=== PATIENT | female | born 1970 | race Caucasian/White ===

== ENCOUNTER → 2020-02-24 08:29 | Outpatient (CLI) | payer SELFPAY ==
[2020-02-24 09:37] LABS: ALB/GLOB Ratio 0.9 RATIO (0.9-2.4); AST(SGOT) 15 U/L (15-37); Alanine Aminotransfer ALT/SGPT 38 U/L (13-56); Albumin, Serum 3.8 g/dL (3.2-5.0); Alkaline Phosphatase 89 U/L (45-117); Anion Gap 5 (5-15); BUN 16 mg/dL (7-18); BUN/Creat Ratio 18.8 RATIO (10-20); Calcium,Total 9.4 mg/dL (8.5-10.1); Chloride 103 mmol/L (98-107); Cholesterol 179 mg/dL (200); Creatinine, Serum 0.85 mg/dL (0.55-1.02); EST Glomerular Filtration Rate 76 mL/min (>60); Est Glom Filt Rate - Afr Amer 92 mL/min (>60); Globulin 4.3 g/dL (2.2-4.2); Glucose 174 mg/dL (74-106); High Density Lipoprotein 47 mg/dL; Potassium 4.6 mmol/L (3.5-5.1); Protein, Total 8.1 g/dL (6.4-8.2); Sodium Level 138 mmol/L (136-145); Triglycerides 155 mg/dL; Very Low Density Lipoprotein 31 mg/dL (5-40)
[2020-02-24 09:39] LABS: Hemoglobin A1c 6.5 % (3.8-5.6)
[2020-02-26 08:30] LABS: Vitamin D,25 Hydroxy 81.9 ng/mL
== END ==
PROVIDERS: PCP Family Medicine; Referring Provider Family Medicine; Visit Provider Family Medicine
DX: E11.42 Type 2 diabetes mellitus with diabetic polyneuropathy (principal); I10 Essential (primary) hypertension; E55.9 Vitamin D deficiency, unspecified
CPT/HCPCS: 36415; 80053; 80061; 82306; 83036

== ENCOUNTER → 2020-08-21 10:34 | Outpatient (CLI) | payer SELFPAY ==
--- NOTE | 2020-08-21 10:41 | ART_ITS ---
Reason For Study: NEUROPATHY Procedure A bilateral lower extremity continuous wave Doppler with analog waveform analysis,segmental pressures,and ankle brachial indexes with exercise. Left Segmental Pressures Left brachial= 153mmHg. Left posterior tibial artery = 154mmHg. Left dorsalis pedis artery = 157mmHg. Left digit = 144 mmHg. The left posterior tibial artery waveforms are triphasic. The left dorsalis pedis waveforms are triphasic. Right Segmental Pressures Right brachial= 154mmHg. Right posterior tibial artery = 167mmHg. Right dorsalis pedis artery = 162mmHg. Right digit = 150 mmHg. The right posterior tibial artery waveforms are triphasic. The right dorsalis pedis waveforms are triphasic. Indices The right ankle brachial index by the posterior tibial artery is 1.08. The right ankle brachial index by the dorsalis pedis is 1.05. The right digital-brachial index is 0.97. The right ankle brachial index by the posterior tibial artery post exercise is 1.15. The left ankle brachial index by the posterior tibial artery is 1.00. The left ankle brachial index by the dorsalis pedis is 1.02. The left digital-brachial index is 0.94. The left post exercise ankle brachial index is 0.99. VL/Lower Ext Art Exam w/ Exercise Interpretation Summary Triphasic Doppler waveforms are noted at ankle level bilaterally. Pulse-volume recording waveform amplitudes are diminished at digital level bilaterally, but satisfactory at all other levels bilaterally. Resting ankle-brachial indices are normal bilaterally. Digital-bra chial indices are normal bilaterally. Following a period of exercise, ankle pressures augmented b ilaterally, a normal physiological response. There is no evidence of significant arterial occlusive disease in the lower ext remities bilaterally. (Patient walked on treadmill at 1.0 mph at a 5% incline for 5 minutes. Patient was unable to walk at a faster pace.) Ordering Physician: [facility] Allie Peters [facility] Performed By: Francia Rosado RVT, RDCS
== END ==
DX: G90.09 Other idiopathic peripheral autonomic neuropathy (principal)
CPT/HCPCS: 93924

== ENCOUNTER → 2020-10-16 08:39 | Outpatient (CLI) | payer SELFPAY ==
--- NOTE | 2020-10-16 15:44 | NEURO_ITS ---
NCS and/or EMG Patient Report Ordering Doctor: Cynthia Benedict DATE OF SERVICE: 10/16/20 Terri presents for electrodiagnostic testing of the lower limbs. She reports burning and hypersensitivity in both feet Electrodiagnostic findings: Peroneal motor nerve demonstrates normal distal latency, amplitude and conduction velocity bilaterally. Tibial motor response within normal limits. Prolonged sural latency is noted bilaterally. Normal superficial peroneal and medial plantar responses prolonged H reflex bilater ally. Prolonged peroneal F wave bilaterally. On needle EMG, all muscles tested in the lower limbs showed no evidence of denervation with normal motor unit action potentials. Electrodiagnostic impression: This is an abnormal study in the lower limbs. 1. 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
== END ==
PROVIDERS: Referring Provider Nurse Practitioner Adult Health; Visit Provider Nurse Practitioner Adult Health
DX: G90.09 Other idiopathic peripheral autonomic neuropathy (principal)
CPT/HCPCS: 95886; 95912

== ENCOUNTER 2021-08-07 16:36 | Emergency (ER) | payer BC, SELFPAY ==
[2021-08-07 16:36] VITALS: BP 163/96; PULSE 132; RESP 22; TEMP 35.5; O2SAT 92; BMI 44.6
[2021-08-07 16:53] VITALS: BP 116/78; PULSE 129; RESP 22; O2SAT 91
--- NOTE | 2021-08-07 17:24 | ED.VIS.FALL ---
HPI HPI - Fall History of Present Illness Chief Complaint: Fall Informant: patient Occured/Mechanism Occurred: Yesterday Mechanism/Context: Yes same level fall Usually ambulates: Without assistance Pain/Injury Pain Location: head and lower extremity (Left ankle and foot) Quality of Pain: Stabbing Worsened by: Movement Relieved by: Rest Associated Symptoms Associated Symptoms: Negative for Parasthesias, Weakness, Loss of function, Loss of consciousness and Amnesia Narrative Narrative: Patient presents after a fall that occurred yesterday. Patient states she was getting out of a van when she fell. Patient twisted her ankle. Patient states she fell backwards and hit the right side of her head. Patient denies any loss of consciousness. Patient denies any paresthesias or weakness. Patient denies any nausea or vomiting. Patient states the majority of her pain is in the left ankle and foot area. Patient describes the pain as stabbing. Patient states the pain is worse with any movement or weightbearing. Patient states it is better with rest. Patient denies any other injuries. PFSH PFSH Medical History COPD (chronic obstructive pulmonary disease) Diabetes Diabetic nephropathy HTN (hypertension) Hypomagnesemia Home Medications hydrocodone-acetaminophen 1 tab PO Q6H PRN PRN 3 Days #10 tablet 08/07/21 [Rx Last Taken Unknown] Allergy/AdvReac Type Severity Reaction Status Date / Time No Known Allergies Allergy Verified 08/07/21 16:36 Surgical History no surgical history no surgical history Social History Smoking Status: Current every day smoker tobacco type: cigarettes ROS ROS ED Constitutional Constitutional ED: Denies chills or fever(s) Eyes Eyes: Denies blurry vision or change in vision ENT ENT ED: Denies rhinorrhea or sore throat Cardiovascular Cardiovascular: Denies chest pain or palpitations Respiratory/Chest Respiratory/Chest: Denies cough or dyspnea Gastrointestinal Gastrointestinal: Denies nausea or vomiting Genitourinary Genitourinary ED: Denies dysuria or hematuria Musculoskeletal Musculoskeletal: Denies back pain or neck pain Integumentary Denies abscess or rash Neurologic Neurologic: Reports headache(s); Denies weakness Allergic/Immunologic Allergic/Immunologic ED: Denies mouth swelling or urticaria EXAM Physical Exam Const Vital Signs: 08/07/21 16:36 08/07/21 16:44 08/07/21 16:53 Temperature 96 F L Temperature Source Temporal Pulse Rate 132 H 129 H Respiratory Rate 22 H 22 H Respiratory Effort Normal Non-Labored Respiratory Depth Normal Respiratory Pattern Normal Blood Pressure 163/96 H 116/78 Blood Pressure Mean 118 90 Pulse Ox 92 91 Oxygen Delivery Method Room Air Room Air Room Air Oxygen Flow Rate (L/min) 08/07/21 19:11 08/07/21 19:12 Temperature Temperature Source Pulse Rate 120 H Respiratory Rate 23 H Respiratory Effort Respiratory Depth Respiratory Pattern Blood Pressure Blood Pressure Mean Pulse Ox 88 94 Oxygen Delivery Method Room Air Room Air Oxygen Flow Rate (L/min) 3 Positive well nourished, well developed and obese General Appearance ED: well developed and NAD Nutritional Appearance: obese HEENT hematoma Hematoma Size: There is a small hematoma on the right parietal/occipital area. Eyes PERRL and EOMs intact bilaterally Neck full ROM General: Negative for tenderness Extremity Extremity Narrative: There is tenderness, edema, and ecchymosis over the lateral aspect of the left ankle and foot. There is no tenderness over the fifth metatarsal. There is no tenderness over the proximal fibula. Range of motion was limited in all motions of the left ankle secondary to pain. Pedal pulses are equal bilaterally. Sensation was intact to light touch in all digits. Capillary refill was less than 2 seconds in all digits. Neuro oriented x3, CN's II-XII intact bilaterally, moves all extremities, no focal motor deficits and no sensory deficits noted Sensorium / Orientation: alert Psych mental status grossly normal MDM MDM MDM Narrative Medical decision making narrative: X-rays of the left ankle were obtained. There are 3 views. On my interpretation, there is a nondisplaced spiral fracture of the distal fibula. The ankle mortise is intact. There are no other fractures noted. Radiologist also interpreted the x-rays and agrees. Patient was advised of her findings. Patient was placed in a short leg custom made well-padded stirrup splint. Patient was given crutches. Patient was given a prescription for [place]. Patient was instructed to ice and elevate the left ankle. Patient was given a referral for orthopedics. Patient understood and was agreeable with the plan. All questions were answered. Radiography Diagnostic Testing: Clinical Impression(s) from Imaging Studies Ankle X-Ray 08/07/21 17:29 IMPRESSION: 1. Spiral fracture of the lateral malleolus with associated soft tissue swelling. 2. No other fractures or dislocations. 3. Balanced ankle mortise. 4. No associated osseous lytic, sclerotic MR mass lesions. Electronically Signed: Jorge Escalona MD at 18:27 EDT , Discharge Plan Triage Chief Complaint: Fall ED Provider: Martin Lopez Dx/Rx/DC Orders Clinical Impression: Closed fracture of left distal fibula, Fall Instructions: ED Ankle Fracture, Distal Fibula Prescriptions: New hydrocodone-acetaminophen [hydrocodone-acetaminophen] 1 TABLET tablet 1 tab PO Q6H PRN PRN (Reason: Pain) 3 Days Qty: 10 RF: 0 Primary Care Provider: [facility] Allie Peters Referrals: Trent Peters DO [STAFF PHYSICIAN] - 3-5 Days [facility] [Primary Care Provider] - 5-7 Days Disposition Disposition: Home, Self Care
--- NOTE | 2021-08-07 17:29 | RAD_ITS ---
STUDY: Left ankle x-ray series of 1737 hours on 08/07/2021 REASON FOR EXAM: 51-year-old female with injury to left ankle and pain. TECHNIQUE: 3 view(s) of the ankle. COMPARISON: None. FINDINGS: Spiral fracture of the lateral malleolus with associated soft tissue swelling. There is no evidence of fractures. There is no evidence of dislocation of the left ankle joint. The ankle mortise is balanced. No evidence of fractures or dislocations. There is no evidence of osseous lytic, sclerotic or mass lesions. A moderate size Achilles spur is present. RAD/Ankle min 3 Views IMPRESSION: 1. Spiral fracture of the lateral malleolus with associated soft tissue swelling. 2. No other fractures or dislocations. 3. Balanced ankle mortise. 4. No associated osseous lytic, sclerotic MR mass lesions. Electronically Signed: Jorge Escalona MD at 18:27 EDT ,
[2021-08-07 19:11] VITALS: PULSE 120; RESP 23; O2SAT 88
[2021-08-07 19:12] VITALS: O2SAT 94
--- NOTE | 2021-08-07 20:20 | ED.RN ---
Patient unstable on test walk with crutches. Dr. Lopez aware that patient failed this test walk, patient states she does have wheelchair at her home residence and has help with performing ADLs. Patient instructed on safety on attempts to transition self.
== END 2021-08-07 20:15 | disposition home or self-care (01) ==
PROVIDERS: Emergency Provider Emergency Medicine; Visit Provider Emergency Medicine
DX: S82.65XA Nondisplaced fracture of lateral malleolus of left fibula, initial encounter for closed fracture (principal); J44.9 Chronic obstructive pulmonary disease, unspecified; Z68.41 Body mass index [BMI] 40.0-44.9, adult; W18.39XA Other fall on same level, initial encounter; E66.9 Obesity, unspecified; F17.210 Nicotine dependence, cigarettes, uncomplicated
CPT/HCPCS: 29515; 73610; 99283

== ENCOUNTER 2021-10-09 13:52 | Emergency (ER) | payer BC, SELFPAY ==
[2021-10-09 13:53] VITALS: BP 154/66; PULSE 137; RESP 18; TEMP 37.4; O2SAT 94; BMI 44.1
--- NOTE | 2021-10-09 14:14 | ED.VIS.DENTA ---
HPI <ONUR Gutiérrez - Last Filed: 10/09/21 14:29> History of Present Illness Chief Complaint: Dental Narrative Narrative: Patient presents with dental pain. One of her left upper teeth has been hurting for 3 days and yesterday she developed left facial swelling which worsened today. She does have a dentist appointment tomorrow but they told her to come to the ED since she developed swelling. Denies difficulty swallowing or breathing. No fever chills nausea or vomiting. PFSH <ONUR Gutiérrez - Last Filed: 10/09/21 14:29> PFSH Medical History COPD (chronic obstructive pulmonary disease) Diabetes Diabetic nephropathy HTN (hypertension) Hypomagnesemia Home Medications hydrocodone-acetaminophen 5-325mg 5mg-325mg 1 tab PO Q6H PRN PRN Pain 3 days #10 TABLETS 08/07/21 [Rx Last Taken Unknown] Lantus U-100 Insulin 70 units OTHER QHS 10/09/21 [History Last Taken Unknown] Prilosec 10/09/21 [History Last Taken Unknown] albuterol 2.5 mg OTHER PRN dyspnea 10/09/21 [History Last Taken Unknown] albuterol sulfate 10/09/21 [History Last Taken Unknown] glimepiride 4 mg PO/SL BID 10/09/21 [History Last Taken Unknown] hydrochlorothiazide 25 mg PO/SL DAILY 10/09/21 [History Last Taken Unknown] lisinopril 20 mg PO/SL DAILY 10/09/21 [History Last Taken Unknown] metformin 1,000 mg PO/SL BID 10/09/21 [History Last Taken Unknown] metoprolol succinate 100 mg PO/SL DAILY 10/09/21 [History Last Taken Unknown] penicillin V potassium 500 mg tablet 500 mg PO 4X/DAY #40 tabs 10/09/21 [Rx Last Taken Unknown] Allergy/AdvReac Type Severity Reaction Status Date / Time No Known Allergies Allergy Verified 08/07/21 16:36 Social History Smoking Status: Current every day smoker tobacco type: cigarettes ROS <ONUR Gutiérrez - Last Filed: 10/09/21 14:29> ROS ED ROS Narrative Constitutional: Negative for fever, chills, malaise. Eyes: Negative for visual change. ENT: Positive for dental pain. CVS: Negative for palpitations, chest pain, syncope. Respiratory: Negative for shortness of breath, cough, orthopnea. GI: Negative for abdominal pain, nausea, vomiting. : Negative for dysuria, hematuria or frequency. Neuro: Negative for headache, motor/sensory dysfunction. Skin: Negative for rash, abscess, or wound. Musc: Negative for joint pain, swelling, trauma. Heme: Negative for easy bruising, bleeding, lymphadenopathy. EXAM <ONUR Gutiérrez - Last Filed: 10/09/21 14:29> Physical Exam Narrative Exam Narrative: CONST: Patient sitting in no acute distress. Left facial swelling. EYES: Normal inspection. ENT: Tender to palpation #11 upper incisor with associated periapical abscess in this area. Airway patent, handling secretions, no trismus or stridor, sublingual space is soft. NECK: Normal inspection. RESP: No respiratory distress, CTAB. CVS: Regular rate and rhythm, no murmur, no gallop. SKIN: Color normal, no rash, warm, dry, intact. EXTREMITIES: Normal appearance, no pedal edema. NEURO: Oriented x4. PSYCH: Normal affect. Const Vital Signs: 10/09/21 13:53 10/09/21 14:18 Temperature 99.4 F H 98.3 F Temperature Source Temporal Oral Pulse Rate 137 H 121 H Respiratory Rate 18 18 Blood Pressure 154/66 H 108/71 Blood Pressure Mean 95 83 Pulse Ox 94 99 Oxygen Delivery Method Room Air Room Air <Dr. Martin Lopez, - Last Filed: 10/09/21 14:24> Physical Exam Const Vital Signs: 10/09/21 13:53 10/09/21 14:18 Temperature 99.4 F H 98.3 F Temperature Source Temporal Oral Pulse Rate 137 H 121 H Respiratory Rate 18 18 Blood Pressure 154/66 H 108/71 Blood Pressure Mean 95 83 Pulse Ox 94 99 Oxygen Delivery Method Room Air Room Air MDM <ONUR Gutiérrez - Last Filed: 10/09/21 14:29> MDM MDM Narrative Medical decision making narrative: Patient has dental pain and left-sided facial swelling. She has tenderness over left upper incisor #11 with a periapical abscess. Airway patent, no signs of deep space or Morales infection. Area of abscess was injected with 1 cc of 1% lidocaine and I used an 11 blade scalpel to make a small incision. Moderate amount of purulent material was expressed. At this time patient is afebrile stable for outpatient management and was given first dose of Pen-VK here. She will call her dentist to get in next week and was discharged in stable condition. 1. Dental pain 2. Periapical abscess <Dr. Martin Lopez, DO - Last Filed: 10/09/21 14:24> [facility] Treatment and Re-Evaluation Narrative: I have personally performed a face to face assessment of the patient and have reviewed the BHARGAV Note. I performed a substantive portion of the visit including all aspects of the following. My akhtar findings include: History: Patient is a 51-year-old female who presents with left upper dental pain and swelling that has been getting worse over the past couple days. Patient denies any fevers or chills. Patient denies any difficulty breathing or difficulty swallowing. Patient states she called her dentist today who referred her to the emergency department but scheduled a follow-up appointment. Exam: Vital signs are stable except for mild tachycardia of 121. Patient is afebrile. Patient is in no acute distress. Oral mucosa is pink and moist. There is a small abscess over the left upper premolar area. Oropharynx is clear. Airway is patent. Neck is supple. Trachea is midline. There is no JVD or lymphadenopathy. Heart was regular rate and rhythm. Lungs are clear and equal bilaterally. Cranial nerves II through XII are intact. There are no focal motor or sensory deficits noted. Medical Decision Making: Patient was given a dose of oxycodone here. Patient was also given a dose of Pen-Vee K here. The gingival abscess was anesthetized and opened. Patient tolerated the procedure well. Patient was given a prescription for Pen-Vee K. Patient was instructed to follow-up with her dentist in 3 to 5 days. Patient understood and was agreeable with the plan. All questions were answered. Discharge Plan Triage Chief Complaint: Dental ED Midlevel Provider: Georgina Rubin ED Provider: Martin Lopez Dx/Rx/DC Orders Clinical Impression: Dental abscess Instructions: Dental Abscess Prescriptions: New penicillin V potassium 500 mg tablet 500 mg PO 4X/DAY Qty: 40 0RF No Action hydrocodone-acetaminophen [hydrocodone-acetaminophen] 1 TABLET tablet 1 tab PO Q6H PRN PRN (Reason: Pain) 3 Days Qty: 10 0RF Lantus U-100 Insulin 70 units OTHER QHS Prilosec albuterol 2.5 mg OTHER PRN albuterol sulfate glimepiride 4 mg PO/SL BID hydrochlorothiazide 25 mg PO/SL DAILY lisinopril 20 mg PO/SL DAILY metformin 1,000 mg PO/SL BID metoprolol succinate 100 mg PO/SL DAILY Primary Care Provider: [facility] Peters [facility] - Activity Restrictions/Additional Instructions: You have a dental infection. There was an abscess that was drained and you were started on an antibiotic to take for the next 10 days. Please follow-up with your dentist after the swelling improves. If any symptoms worsen or you develop a fever or any difficulty swallowing or breathing come back to the ER immediately. Disposition Disposition: Home, Self Care
[2021-10-09] MEDS: Penicillin Vk 250 MG Tablet 500 MG PO (14:16)
[2021-10-09 14:18] VITALS: BP 108/71; PULSE 121; RESP 18; TEMP 36.8; O2SAT 99
[2021-10-09] MEDS: oxyCODONE 5 MG Tablet PO (14:23)
== END 2021-10-09 14:34 | disposition home or self-care (01) ==
LOC: ED 14:19
PROVIDERS: Emergency Provider Emergency Medicine; Visit Provider Emergency Medicine
DX: K04.7 Periapical abscess without sinus (principal); J44.9 Chronic obstructive pulmonary disease, unspecified; E11.21 Type 2 diabetes mellitus with diabetic nephropathy; Z79.4 Long term (current) use of insulin; I10 Essential (primary) hypertension; F17.210 Nicotine dependence, cigarettes, uncomplicated; Z79.84 Long term (current) use of oral hypoglycemic drugs; Z79.899 Other long term (current) drug therapy
CPT/HCPCS: 41800; 99283

== ENCOUNTER → 2022-07-28 | Outpatient (CLI) | payer BC, SELFPAY | END | disposition home or self-care (01) | LOC: SL 14:02 | PROVIDERS: Visit Provider Nurse Practitioner Acute Care | DX: Z46.89 Encounter for fitting and adjustment of other specified devices (principal) ==

== ENCOUNTER → 2022-07-31 | Outpatient (CLI) | payer BC, SELFPAY ==
--- NOTE | 2022-07-31 12:56 | CT_ITS ---
STUDY: LOW DOSE CT LUNG CANCER SCREENING REASON FOR EXAM: Female, 52 years old. Smoker 1 ppd 30 years RADIATION DOSAGE (If Supplied By Facility): CTDIvol = ( 4.02 ) mGy, DLP = ( 140.94 ) mGycm TECHNIQUE: No contrast was administered. Low dose technique was utilized (average mAS-38 and kVp 120). 1.25 mm axial source images with a slice interval of 1.25-mm were reconstructed in lung windows. 2.5 mm axial source images with a slice interval of 2.5-mm were reconstructed in lung windows. 5.0 mm axial source images with a slice interval of 5.0-mm were reconstructed in soft tissue windows. COMPARISON: None. NODULES: Infiltration is seen in the left lower lobe. This extends into the pleural surface. Correlation with a PET scan is recommended. Emphysema: Mild emphysematous changes Endobronchial lesion: Unremarkable. Aorta: Mild degree of calcific plaques at the level of the aortic arch. CORONARY ARTERIES: Coronary artery calcification is seen. Heart: Unremarkable Pulmonary artery: Unremarkable Mediastinal nodes: Small mediastinal lymph nodes. Other chest and abdominal findings: CT/Low Dose CT Lung Screening IMPRESSION: Lung-RADS category 4A - Screening at 3 months with LDCT or evaluation with PET/CT may be used. IMPORTANT NOTES FOR USE: ACR Lung-RADS Version 1.1 Assessment Categories Release Date: 2018 Category: Coded 0-4 bases on nodule(s) with highest degree of suspicion. Negative screen is defined as categories 1 and 2; a positive screen is defined as categories 3 and 4. Category 3 and 4A nodules that are unchanged on interval CT should be coded as category 2, and individuals returned to screening in 12 months. Category 4X: Category 3 or 4 nodules with additional imaging findings that increase the suspicion of lung cancer, such as spiculation, GGN that doubles in size in 1 year, enlarged lymph notes, etc. Category Modifiers: S (significant finding unrelated to lung cancer) Electronically Signed: Saurabh Lopez MD at 8:43 EDT ,
== END | disposition home or self-care (01) ==
LOC: CT 12:56
PROVIDERS: Referring Provider Nurse Practitioner Acute Care; Visit Provider Nurse Practitioner Acute Care
DX: Z12.2 Encounter for screening for malignant neoplasm of respiratory organs (principal); F17.210 Nicotine dependence, cigarettes, uncomplicated
CPT/HCPCS: 71271

== ENCOUNTER → 2022-08-25 | Outpatient (CLI) | payer OTHER, SELFPAY | END | disposition home or self-care (01) | LOC: ONC 10:03 | PROVIDERS: Referring Provider Nurse Practitioner Acute Care; Visit Provider Nurse Practitioner Acute Care | DX: J18.1 Lobar pneumonia, unspecified organism (principal) ==

== ENCOUNTER → 2022-09-08 | Outpatient (CLI) | payer OTHER, SELFPAY ==
--- NOTE | 2022-09-08 10:00 | PET_ITS ---
EXAMINATION: FDG PET-CT INDICATIONS: A 52-year-old female with history of pulmonary nodularity. COMPARISON EXAMINATION: CT of the chest report dated 07/31/22 TECHNIQUE: Following the intravenous administration of 12.25 mCi of F-18 deoxyglucose via the left hand, multiplanar image acquisitions of the neck, chest, abdomen and pelvis to level of mid thigh, obtained at one hour post radiopharmaceutical administration contemporaneously interpreted with the current CT of the neck, chest, abdomen and pelvis, to level of mid thigh, dated 09/08/[address] of the chest report dated 07/31/22 reveals: BLOOD GLUCOSE LEVEL:?? 219 mg/dl?HEIGHT:?65 inches?WEIGHT: 275 lbs. FINDINGS: Head/Neck: There is no evidence of abnormal increased glucose metabolism in the pharyngeal mucosal space, parapharyngeal space, bilateral-lateral and anterior neck, hypopharynx and distribution of the laryngeal structures. The visualized portion of the cerebral cortical-subcortical structures demonstrate symmetric and preserved glucose metabolism. CHEST: Facilitated uptake is noted in the precarinal mediastinum which appears associated with arterial vasculature generating a calculated maximal standard uptake value of 3.0. Quantitative criteria for viable neoplasm are not fulfilled. Pertinent chest CT findings are as follows. Linear parenchymal changes noted in the bilateral hemithorax demonstrate no evidence of quantitatively significant increased FDG uptake. There is atherosclerotic calcification defined in the thoracic aorta without evidence of dilatation-aneurysm formation. Coronary arterial calcification is observed. Right-left axillary soft tissue densities are ametabolic. Abdomen/Pelvis: Normal physiologic distribution of the radiopharmaceutical is apparent in the hepatic and splenic parenchyma, both renal units, bladder and visualized intestinal tract. Pertinent abdomen and pelvis CT findings are as follows. Right and left inguinal soft tissue densities are ametabolic. Calcification is defined in the left lower hemipelvis in proximity to the adnexa without evidence of increased tracer uptake. There is atherosclerotic calcification defined in the abdominal aorta without evidence of dilatation-aneurysm formation. Pelvic arterial calcification is observed. Skeletal/integumentary: Facilitated uptake noted in the left axillary region likely represents sequestered radiopharmaceutical from dose infiltration of the left upper extremity. PET/PET/CT Tumor Base -Thigh Init IMPRESSION: 1. NEGATIVE EXAMINATION. There is no definitive quantitative scintigraphic evidence of viable neoplasm. 2. Metabolic, morphologic stability may be ensured in the bilateral hemithorax pulmonary parenchyma with repeat CT of the chest and/or FDG PET-CT imaging in 3-6 months if clinically indicated. (Atif et al, Journal of Nuclear Medicine 45:88P, 2004 Ronna, Seminars in Thoracic and Cardiovascular Surgery 14:292, 2001). Electronic Signature Jese Ragland D.O. Accurate Quantification of SUVs for this report are calculated using the exclusive [employer]. ([place].S. Patent No. [id number] B2 [phone] [place] patent [id number] [phone] [id number]). Standardization and correction of the FDG SUV metric via [employer] technology allow for vendor non-specific objective quantitative examination comparison and optimization of the sensitivity and specificity of the FDG PET-CT examination. Electronically Signed: Jese Ragland, at 22:43 EDT ,
== END | disposition home or self-care (01) ==
LOC: ONC 09:58
PROVIDERS: Referring Provider Nurse Practitioner Acute Care; Visit Provider Nurse Practitioner Acute Care
DX: J18.1 Lobar pneumonia, unspecified organism (principal)
CPT/HCPCS: 78815; A9552

== ENCOUNTER → 2022-11-12 | Outpatient (CLI) | payer OTHER, SELFPAY | END | disposition home or self-care (01) | LOC: SL 12:28 | PROVIDERS: Referring Provider Internal Medicine Critical Care Medicine; Visit Provider Internal Medicine Critical Care Medicine | DX: R69 Illness, unspecified (principal) ==

== ENCOUNTER → 2022-11-13 | Outpatient (CLI) | payer OTHER, SELFPAY ==
--- NOTE | 2022-11-15 07:01 | PFT ---
INTRODUCTION: The patient is a 52-year-old female who presents for pulmonary function studies secondary to a diagnosis of COPD. Respiratory therapy reported good patient effort. Bronchodilators were used during testing. INTERPRETATION: Forced expiration spirometry demonstrates the presence of a severe large airways obstructive ventilatory defect. There was no significant response to aerosolized bronchodilators. Spirograms are of good quality and plateau gradually indicating slow emptying of the lungs. Body plethysmography was performed and revealed an elevated RV to 136% of predicted, indicative of underlying air trapping. Diffusing capacity by single breath CO was reduced to 74% of predicted. IMPRESSION: Irreversible severe large airways obstructive ventilatory defect with associated air trapping and mild reduction in diffusing capacity.
== END | disposition home or self-care (01) ==
LOC: PSN 12:59
PROVIDERS: Referring Provider Internal Medicine Critical Care Medicine; Visit Provider Internal Medicine Critical Care Medicine
DX: J44.9 Chronic obstructive pulmonary disease, unspecified (principal); G47.33 Obstructive sleep apnea (adult) (pediatric)
CPT/HCPCS: 94060; 94726; 94729

== ENCOUNTER → 2022-11-23 | Outpatient (CLI) | payer OTHER, SELFPAY ==
[2022-11-23 12:50] VITALS: PULSE 101; PULSE 107; PULSE 111; PULSE 114; PULSE 115; PULSE 118; PULSE 121; O2SAT 85; O2SAT 88; O2SAT 90; O2SAT 92; O2SAT 93
--- NOTE | 2022-11-23 12:54 | CPS ---
1 minute into walk pt was placed on 1 lpm. Pt was increased to 2 lpm at minute 2 of walk. Pt was increased again at 4 minutes to 3 lpm. Pt was able to finish walk on 3lpm.
--- NOTE | 2022-11-24 08:24 | PCM.PSN.6M ---
PSN 6 Minute Walk Test 6 Minute Walk Test 6 Minute Walk Test: 6 Minute Walk Test PSN:6-Minute Walk Test Start: 11/23/22 12:50 Freq: Status: Active Protocol: [id number] Document 11/23/22 12:50 [facility] (Rec: 11/23/22 12:57 [facility] [id number]) 6 Minute Walk Test Date Performed 11/23/22 Time Performed 12:30 Height 5 ft 6 in Weight: 270 lb Weight in Pounds 270.[address]: Dr Olvera Assistive device used: None Pre-test Oxygen Delivery Method Room Air Pulse Ox 92 Pulse Rate (60-100) 101 H Dyspnea Alicia Scale (0-10) 0.5 Exertion Alicia Scale (6-20) 6 1st minute Oxygen Delivery Method Room Air Pulse Ox 85 Pulse Rate (60-100) 111 H Dyspnea Alicia Scale (0-10) 1 Reported Symptoms Increased Work of Breathing 2nd minute Oxygen Flow Rate (L/min) 1 Oxygen Delivery Method Nasal Cannula Pulse Ox 88 Pulse Rate (60-100) 118 H Dyspnea Alicia Scale (0-10) 2 Reported Symptoms Increased Work of Breathing 3rd minute Oxygen Flow Rate (L/min) 2 Oxygen Delivery Method Nasal Cannula Pulse Ox 90 Pulse Rate (60-100) 114 H Dyspnea Alicia Scale (0-10) 1 Reported Symptoms Increased Work of Breathing 4th minute Oxygen Flow Rate (L/min) 2 Oxygen Delivery Method Nasal Cannula Pulse Ox 88 Pulse Rate (60-100) 118 H Dyspnea Alicia Scale (0-10) 1 Reported Symptoms Increased Work of Breathing 5th minute Oxygen Flow Rate (L/min) 3 Oxygen Delivery Method Nasal Cannula Pulse Ox 92 Pulse Rate (60-100) 115 H 6th minute Oxygen Flow Rate (L/min) 3 Oxygen Delivery Method Nasal Cannula Pulse Ox 90 Pulse Rate (60-100) 121 H Dyspnea Alicia Scale (0-10) 2 Exertion Alicia Scale (6-20) 12 Reported Symptoms Increased Work of Breathing Post-test Oxygen Flow Rate (L/min) 3 Oxygen Delivery Method Nasal Cannula Pulse Ox 93 Pulse Rate (60-100) 107 H Full Laps Walked 8 Partial Lap, Number of Tiles Walked 22 Total Distance Walked (ft) 494 11/23/22 12:54 Cardiopulmonary Services by Ronna Obrien 1 minute into walk pt was placed on 1 lpm. Pt was increased to 2 lpm at minute 2 of walk. Pt was increased again at 4 minutes to 3 lpm. Pt was able to finish walk on 3lpm. Initialized on 11/23/22 12:54 - END OF NOTE Interpretation Interpretation: The patient ambulated 494 feet over the course of 6 minutes beginning on room air without assistive devices. Pretesting oxygen saturation was noted to be 92% on room air. With ambulation, the patient desaturated on several occasions, requiring 3 L/min of supplemental oxygen to maintain appropriate saturations. Recommendations Recommendations: 3 L/min of supplemental oxygen should be utilized with exertion.
== END | disposition home or self-care (01) ==
PROVIDERS: Referring Provider Internal Medicine Critical Care Medicine; Visit Provider Internal Medicine Critical Care Medicine
DX: J44.9 Chronic obstructive pulmonary disease, unspecified (principal); G47.33 Obstructive sleep apnea (adult) (pediatric)
CPT/HCPCS: 94618

== ENCOUNTER 2023-04-09 09:36 | Emergency (ER) | payer OTHER, SELFPAY ==
[2023-04-09 09:37] VITALS: BP 134/90; PULSE 151; RESP 26; TEMP 36.8; O2SAT 89
[2023-04-09 09:48] VITALS: BP 139/92; PULSE 148; RESP 20; TEMP 36.8; O2SAT 93
--- NOTE | 2023-04-09 09:48 | RAD_ITS ---
STUDY: X-RAY CHEST REASON FOR EXAM: Female, 53 years old. cough TECHNIQUE: PA and lateral views of the chest. COMPARISON: None. FINDINGS: Lungs are expanded with superimposed lingular pneumonia and small left pleural effusion noted. Follow-up recommended to ensure complete resolution. Right lung is clear Normal size heart. Normal mediastinum and shannon. Normal visualized pulmonary arteries. Normal visualized aortic arch and descending thoracic aorta. Normal visualized thoracic spine. Normal visualized ribs, clavicles, and shoulders. There is no demonstrated abnormality of the visualized soft tissue structures of the upper abdomen. RAD/Chest PA and Lateral IMPRESSION: Lingular infiltrate with left pleural effusion. Follow-up recommended to assure complete resolution Electronically Signed: Ivan Denney MD at 10:38 EST ,
[2023-04-09 09:51] VITALS: O2SAT 93
--- NOTE | 2023-04-09 09:52 | EDS_ITS ---
HPI History of Present Illness Chief Complaint: Shortness of Breath Informant: patient Onset/Context/Timing Onset: Days Context: gradual Current Severity: Mild Maximum Severity: Mild Worsened by: Coughing Relieved by: Rest and Oxygen Associated Symptoms cough Chest Pain: Positive for None Narrative Narrative: 53-year-old female history of COPD on 3 L oxygen at home, diabetes and hypertension. States that she has been short of breath last several days with cough of yellow phlegm for 1 week. No chest pain. No history of DVT or PE. No leg pain or swelling. PE Risk Factors: Negative for Cancer, OCP + Smoking + > 35, Prior DVT or PE, Recent immobilization, Recent surgery or Recent travel Prior similar symptoms: Yes Recent Illness/Hospitalization: No PFSH [facility] Medical History COPD (chronic obstructive pulmonary disease) Diabetes Diabetic nephropathy HTN (hypertension) Hypomagnesemia Home Medications hydrochlorothiazide 25 mg PO/SL DAILY 10/09/21 [History Last Taken Unknown] albuterol sulfate 2.5 mg/3 mL (0.083 %) solution for nebulization 2.5 mg inhalation Q4H PRN 07/17/22 [History Last Taken Unknown] albuterol sulfate 90 mcg/actuation aerosol inhaler 2 puff inhalation Q4H PRN 07/17/22 [History Last Taken Unknown] cholecalciferol (vitamin D3) 125 mcg (5,000 unit) capsule 125 mcg PO DAILY 07/17/22 [History Last Taken Unknown] fluticasone propionate 50 mcg/actuation nasal spray,suspension (Flonase Allergy Relief) 2 spray intranasal DAILY 07/17/22 [History Last Taken Unknown] glimepiride 2 mg tablet 2 mg PO BID 07/17/22 [History Last Taken Unknown] lisinopril 40 mg tablet 40 mg PO DAILY 07/17/22 [History Last Taken Unknown] metformin 1,000 mg tablet 1,000 mg PO BID 07/17/22 [History Last Taken Unknown] metoprolol tartrate 100 mg tablet 100 mg PO DAILY 07/17/22 [History Last Taken Unknown] omeprazole magnesium 20 mg tablet,delayed release (Prilosec OTC) 40 mg PO DAILY 07/17/22 [History Last Taken Unknown] pregabalin 150 mg capsule (Lyrica) 150 mg PO TID 07/17/22 [History Last Taken Unknown] doxycycline hyclate 100 mg tablet 100 mg PO BID #20 tabs 01/29/23 [Rx Last Taken Unknown] insulin glargine U-300 conc 300 unit/mL (3 mL) subcutaneous pen (Toujeo Max U- 300 SoloStar) unit subcut 01/29/23 [History Last Taken Unknown] insulin lispro 100 unit/mL subcutaneous pen (Humalog KwikPen (U-100) Insulin) subcut 01/29/23 [History Last Taken Unknown] magnesium oxide 400 mg (241.3 mg magnesium) tablet (MagOx) mg PO 01/29/23 [History Last Taken Unknown] prednisone 20 mg tablet 60 mg (3 x 20 mg) PO QDAY #15 tabs 01/29/23 [Rx Last Taken Unknown] budesonide 160 mcg-glycopyr 9 mcg-formot 4.8 mcg/actuation HFA inhaler (Breztri Aerosphere) 2 inh inhalation BID #10.7 grams 02/10/23 [Rx Last Taken Unknown] azithromycin 250 mg tablet (Zithromax) 250 mg PO DAILY 4 days #4 tabs 04/09/23 [Rx Last Taken Unknown] prednisone 20 mg tablet 40 mg (2 x 20 mg) PO DAILY 7 days #14 tabs 04/09/23 [Rx Last Taken Unknown] Allergy/AdvReac Type Severity Reaction Status Date / Time No Known Allergies Allergy Verified 04/09/23 09:37 Family History Father Cancer LUNG CA Mother Diabetes COPD (chronic obstructive pulmonary disease) Kidney disease Sister COPD (chronic obstructive pulmonary disease) Anemia Social History Smoking Status: Current every day smoker tobacco type: cigarettes ROS ROS ED ROS Narrative Cough of yellow phlegm. Short of breath. Review of Systems ROS Unobtainable: Denies due to encephalopathy Constitutional Constitutional ED: Denies chills or fever(s) Eyes Eyes: Denies blurry vision ENT ENT ED: Denies ear pain Cardiovascular Cardiovascular: Denies chest pain Respiratory/Chest Respiratory/Chest: Reports cough and dyspnea Gastrointestinal Gastrointestinal: Reports abdominal pain; Denies constipation, diarrhea, melena, nausea or vomiting Genitourinary Genitourinary ED: Denies dysuria or hematuria Musculoskeletal Musculoskeletal: Denies arthralgias Integumentary Denies abscess Neurologic Neurologic: Denies headache(s) Psychiatric Psychiatric: Denies anxiety or depression Endocrine Endocrinology: Denies cold intolerance Hematologic/Lymphatic Hematologic/Lymphatic: Denies easy bleeding, easy bruising or lymphadenopathy Allergic/Immunologic Allergic/Immunologic ED: Denies mouth swelling, tongue swelling or urticaria EXAM Physical Exam Narrative Exam Narrative: Well-appearing 53-year-old female no acute distress. Vital signs are stable and she is tachycardic. Pulse ox 89% on room air however she is typically on oxygen on her normal 3 L she is 93%. Hypoxic without O2. H EENT exam unremarkable. Moist extremities. Neck nontender no JVD. No lymphadenopathy. Lungs clear to auscultation bilaterally. Prolonged expiratory phase. Currently no wheezing, rales or rhonchi. Equal symmetrical. Heart tachycardic rate about 120 no murmur. Chest wall nontender. Abdomen soft nontender. Moving all 4 extremities. Calves are nontender without edema or cords. 5-5 change management lead strength. Dorsi and plantarflexion intact. Neurologically she is awake and alert no focal motor deficits. Const Vital Signs: 04/09/23 09:37 04/09/23 09:48 04/09/23 09:51 Temperature 98.2 F 98.2 F Temperature Source Temporal Oral Pulse Rate 151 H 148 H Respiratory Rate 26 H 20 H Respiratory Effort Short of Breath Labored Respiratory Depth Deep Respiratory Pattern Tachypnea Blood Pressure 134/90 H 139/92 H Blood Pressure Mean 104 107 Pulse Ox 89 93 Oxygen Delivery Method Room Air Nasal Cannula Nasal Cannula Oxygen Flow Rate (L/min) 3 3 04/09/23 09:59 04/09/23 09:59 04/09/23 12:36 Temperature Temperature Source Pulse Rate 144 H 127 H Respiratory Rate 24 H 19 H Respiratory Effort Respiratory Depth Respiratory Pattern Tachypnea Blood Pressure 129/81 H Blood Pressure Mean 97 Pulse Ox 92 94 Oxygen Delivery Method Nasal Cannula Nasal Cannula Oxygen Flow Rate (L/min) 3 3 Positive well nourished and well developed; Negative for cachectic, contractures or unkempt General Appearance ED: well developed and NAD; Negative for unkempt, cachectic, contractures or pallor Nutritional Appearance: Negative for cachectic HEENT Reports moist mucous membranes; Denies dry mucous membranes atraumatic; Negative for trauma or tenderness Mouth ED: No dry mucous membranes Mouth: No dry mucous membranes Eyes PERRL and EOMs intact bilaterally General Eye ED: Negative for pale conjunctiva, scleral icterus or other Neck no lymphadenopathy, supple, no meningeal signs and no JVD General: Negative for tenderness Lymph Lymphatic: Negative for other Chest Wall Chest: Negative for other Resp normal respiratory effort and clear to auscultation bilaterally Resp Narrative: Prolonged expiratory phase. Effort and Inspection: Negative for pain with movement Auscultation: Negative for rales, rhonchi or wheezes Cardio regular rhythm, S1 normal heart sound, S2 normal heart sound and no murmurs; Negative for regular rate Rate: tachycardic Rhythm: Negative for abnormal rhythm GI non-tender, non-distended and no masses Inspection: Negative for other Auscultation: normoactive bowel sounds Palpation: soft; Negative for tender or guarding Back/Spine no CVA tenderness and normal to inspection General Back: Negative for CVA tenderness or tenderness Extremity normal to inspection General Extremety ED: Negative for edema or tenderness General Extremity: Negative for edema Neuro oriented x3 and CN's II-XII intact bilaterally Sensorium / Orientation: alert, oriented to person, oriented to place and oriented to time; Negative for orientation impaired, confused, lethargic or stuporous Speech: speech normal Motor Exam: strength 5/5 throughout Psych mental status grossly normal Appearance: Negative for unkempt Attitude: No agitated Mood & Affect: Negative for depressed, anxious or tearful Thought Process: normal thought process Skin no wounds and skin turgor normal General Skin Exam: Negative for jaundice or pallor Lesions: no lesions Rashes: no rashes Trauma: Negative for abrasion, laceration or puncture MDM MDM MDM Narrative Medical decision making narrative: 53-year-old with COPD on oxygen. With URI symptoms. Consistent with COPD flare most likely viral syndrome. Chest x-ray, EKG and COVID and flu. Treated with DuoNeb and albuterol aerosols. P.o. prednisone. BGT due to her being diabetic. Repeat exam at 1 PM patient doing better after aerosol treatment and prednisone. Her chest x-ray looks like a left lower lobe infiltrate with a small effusion. She will be treated with Zithromax Z-Tanner first dose given in the ER and outpatient follow-up. Placed on prednisone 40 mg a day for 1 week. Watch blood sugars closely. Follow-up with her primary care provider to ensure she is improving. History & Record Review Discussion w/independent historian: Patient Additional record(s) reviewed:: Prior inpatient record, Prior outpatient record, Prior ED visit and Prior labs Lab Data Attestation: I reviewed the patient's lab results. Lab results narrative: COVID, flu and RSV PCR's were all negative. Blood sugar 240. Labs: Laboratory Results - last 24 hr 04/09/23 10:11 POC Glucose 240 H Radiography Chest X-Ray - ED: 1 View, Read by ED Physician, Heart, Mediastinum, Bony Structures, Left Infiltrate and Left Effusion Diagnostic Testing: Clinical Impression(s) from Imaging Studies Chest X-Ray 04/09/23 09:48 IMPRESSION: Lingular infiltrate with left pleural effusion. Follow-up recommended to assure complete resolution Electronically Signed: Ivan Denney MD at 10:38 EST Reading Location ID and State: [address] [place] [address] , Service support , Chest x-ray, 2 views, interpreted by myself and the radiologist shows left lower lobe lingular infiltrate with a small pleural effusion. This will be treated as pneumonia. Discharge Plan Triage Chief Complaint: Shortness of Breath ED Provider: Angel Vasquez Dx/Rx/DC Orders Clinical Impression: Acute exacerbation of chronic obstructive pulmonary disease, History of diabetes mellitus, Pneumonia Instructions: ED COPD Flare, ED Pneumonia (Adult) Prescriptions: New azithromycin [Zithromax] 250 mg tablet 250 mg PO DAILY 4 Days Qty: 4 0RF Rx Instructions: start on day 2 of therapy prednisone 20 mg tablet 40 mg PO DAILY 7 Days Qty: 14 0RF No Action albuterol sulfate 90 mcg/actuation HFA aerosol inhaler 2 puff inhalation Q4H PRN albuterol sulfate 2.5 mg /3 mL (0.083 %) solution for nebulization 2.5 mg inhalation Q4H PRN glimepiride 2 mg tablet 2 mg PO BID lisinopril 40 mg tablet 40 mg PO DAILY pregabalin [Lyrica] 150 mg capsule 150 mg PO TID metformin 1,000 mg tablet 1,000 mg PO BID metoprolol tartrate 100 mg tablet 100 mg PO DAILY omeprazole magnesium [Prilosec OTC] 20 mg tablet,delayed release (DR/EC) 40 mg PO DAILY cholecalciferol (vitamin D3) 125 mcg (5,000 unit) capsule 125 mcg PO DAILY fluticasone propionate [Flonase Allergy Relief] 50 mcg/actuation spray,suspension 2 spray intranasal DAILY Rx Instructions: administer into each nostril magnesium oxide [MagOx] 400 mg (241.3 mg magnesium) tablet PO Toujeo Max U-300 SoloStar 300 unit/mL (3 mL) insulin pen subcut insulin lispro [Humalog KwikPen Insulin] 100 unit/mL insulin pen subcut prednisone 20 mg tablet 60 mg PO QDAY Qty: 15 0RF Rx Instructions: administer with food or milk doxycycline hyclate 100 mg tablet 100 mg PO BID Qty: 20 0RF hydrochlorothiazide 25 mg PO/SL DAILY Breztri Aerosphere 160-9-4.8 mcg/actuation HFA aerosol inhaler 2 inh inhalation BID Qty: 10.7 6RF Primary Care Provider: Karlie Nieto Referrals: [facility],Allie Maharaj [Non-Staff] - 1 Week Activity Restrictions/Additional Instructions: Use your inhaler or nebulizer for the wheezing and help your breathing. Prednisone 40 mg a day starting tomorrow. This will decrease inflammation in your lungs and help your breathing. While on the prednisone watch your blood sugars that will increase them. The antibiotic Zithromax 1 pill a day the next 4 days starting tomorrow. Follow-up with your primary care provider to ensure you are improving. Return if a lot worse. Continue your home oxygen. Home aerosols and inhaler. Disposition Disposition: Home, Self Care
[2023-04-09] MEDS: Albuterol 2.5 MG/3 ML VIAL.NEB. INHALATION (09:58)
[2023-04-09] MEDS: Ipratropium/Albuterol Sulfate 3 ML AMPUL.NEB INHALATION (09:58)
[2023-04-09 09:59] VITALS: PULSE 144; RESP 24; O2SAT 92
[2023-04-09] MEDS: predniSONE 20 MG Tablet 60 MG PO (10:14)
[2023-04-09 10:29] LABS: Bedside Glucose 240 mg/dL (74-106)
[2023-04-09 12:36] VITALS: BP 129/81; PULSE 127; RESP 19; O2SAT 94
[2023-04-09] MEDS: Azithromycin 250 MG Tablet 500 MG PO (13:09)
[2023-04-09 13:20] VITALS: BP 141/93; PULSE 119; RESP 19; O2SAT 94
== END 2023-04-09 13:22 | disposition home or self-care (01) ==
PROVIDERS: Emergency Provider Emergency Medicine; PCP Nurse Practitioner Family; Visit Provider Emergency Medicine
DX: J18.9 Pneumonia, unspecified organism (principal); J44.1 Chronic obstructive pulmonary disease with (acute) exacerbation; J44.0 Chronic obstructive pulmonary disease with (acute) lower respiratory infection; E11.21 Type 2 diabetes mellitus with diabetic nephropathy; Z79.4 Long term (current) use of insulin; I10 Essential (primary) hypertension; F17.210 Nicotine dependence, cigarettes, uncomplicated; Z99.81 Dependence on supplemental oxygen; Z79.84 Long term (current) use of oral hypoglycemic drugs; Z80.1 Family history of malignant neoplasm of trachea, bronchus and lung; Z83.6 Family history of other diseases of the respiratory system
CPT/HCPCS: 71046; 82962; 87631; 94640; 99283; A4216

== ENCOUNTER → 2023-05-06 | Outpatient (CLI) | payer OTHER, SELFPAY ==
--- NOTE | 2023-05-06 13:30 | RAD_ITS ---
EXAM: XR CHEST, 2 VIEWS CLINICAL INDICATION: cough TECHNIQUE: Frontal and lateral views of the chest. COMPARISON: 04/09/2023 FINDINGS: LUNGS AND PLEURAL SPACES: There is blunting left costophrenic angle which may represent small effusion. There is improved aeration in the lingula. No pneumothorax. HEART: Unremarkable. Cardiac silhouette not enlarged. MEDIASTINUM: Central airways and mediastinal contour are unremarkable. BONES/JOINTS: Unremarkable. No acute fracture. SOFT TISSUES: Unremarkable. RAD/Chest PA and Lateral IMPRESSION: Small left-sided pleural effusion. There is mild lingular opacity which may represent pneumonia. Electronically Signed: Gatito Snowden MD at 20:20 EST ,
== END | disposition home or self-care (01) ==
LOC: RAD 13:17
PROVIDERS: PCP Nurse Practitioner Family; Visit Provider Nurse Practitioner Acute Care
DX: J43.2 Centrilobular emphysema (principal)
CPT/HCPCS: 71046

== ENCOUNTER → 2023-05-14 | Outpatient (CLI) | payer OTHER, SELFPAY ==
--- OUTSIDE RECORDS SUMMARY | 2023-05-14 09:45 | XMS RPT_ITS | CCD ---
Demographics Address [address] [place] [address] Preferred Language en Marital Status Single Presybeterian Affiliation Unknown Race White Ethnic Group Not or Lati no Author Name Unknown Address [address] [place] [address] Organization [facility] Care Team Providers Care Movie Shot Cameraman Name Role Phone MARILYN BARNARD Attending Unavailable MARILYN BARNARD Primary Care Unavailable MARILYN BARNARD PAC Admitting Unavailable Cynthia Benedict CNP Unavailable Gerson PERIODICALS CLERK.Karlie CANTU Primary Care Provider KARLIE NIETO Primary Care Unavailable MIYA MATAMOROS Attending Unavailable GERSON, KARLIE Primary Care Unavailable MIYA MATAMOROS Attending Unavailable GERSON, KARLIE Primary Care Unavailable CIOCE, WILMA C Referring Unavailable KNADDISON, KARLIE Primary Care Unavailable KNOBLE, KARLIE Primary Care Unavailable CIOCE, WILMA C Attending Unavailable KNADDISON, KARLIE Primary Care Unavailable KARLIE NIETO Attending Unavailable GERSON, KARLIE Primary Care Unavailable CIOCE, WILMA C Referring Unavailable KNADDISON, KARLIE Referring Unavailable KNADDISON, KARLIE Primary Care Unavailable CIOCE, WILMA C Attending Unavailable GERSON KARLIE Referring Unavailable KNADDISON, KARLIE Primary Care Unavailable KNKARLIE JAIME Attending Unavailable JULIANNE LINDSAY Primary Care Unavailable KNOBLE, KARLIE Primary Care Unavailable SATURNINO, MIYA Referring Unavailable KNOBLE, KARLIE Primary Care Unavailable SATURNINO, MIYA Referring Unavailable KNADDISON, KARLIE Primary Care Unavailable MIYA MATAMOROS Referring Unavailable Medications Current Medications Medication Drug Class(es) Dates Sig (Normalized) Sig (Original) fluticasone propionate 0.05 mg/actuat metered dose nasal spray (20 sources) Corticosteroid Start: 03-04-2023 End: 06-02-2023 take 2 spray(s) nasal route once daily fluticasone (FLONASE) 50 mcg/actuation nasal spray Use 2 Sprays in each nostril once daily. 15.8 mL 1 03/04/2023 06/02/2023 Active Completed/Discontinued Medications Medication Drug Class(es) Dates Sig (Normalized) Sig (Original) albuterol 0.83 mg/ml inhalation solution (20 sources) beta2-Adrenergic Agonist Start: 11-19-2022 take 2.5 mg by inhalation every four hours as needed albuterol (PROVENTIL) 2.5 mg /3 mL (0.083 %) nebulizer solution Use 3 mL via nebulizer every 4 hours as needed for wheezing/shortnes s of breath. 150 mL 1 11/19/2022 Active Problems Active Problems Problem Classification Problem Date Documented Date Episodic/Chronic Chronic obstructive pulmonary disease and bronchiectasis (2 sources) Chronic obstructive lung disease; Translations: [Chronic obstructive pulmonary disease, unspecified] Onset: 01-01-2023 01-01-2023 Chronic Diabetes mellitus with complications (10 sources) Type 2 diabetes mellitus; Translations: [Type 2 diabetes mellitus with diabetic neuropathy, unspecified] Onset: 11-11-2022 10-12-2022 Chronic Diabetes mellitus without complication (2 sources) Type 2 diabetes mellitus without complication; Translations: [Type 2 diabetes mellitus without complications] Onset: 02-03-2023 02-03-2023 Chronic Esophageal disorders (2 sources) Gastroesophageal reflux disease without esophagitis; Translations: [Gastro-esophageal reflux disease without esophagitis] Onset: 01-01-2023 01-01-2023 Chronic Essential hypertension (2 sources) Essential hypertension; Translations: [Essential (primary) hypertension] Onset: 01-01-2023 01-01-2023 Chronic Nutritional deficiencies (2 sources) Vitamin D deficiency; Translations: [Vitamin D deficiency, unspecified] Onset: 11-11-2022 11-11-2022 Chronic Other aftercare (2 sources) 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; Translations: [Type 2 diabetes mellitus without complication, with long-term current use of insulin (HCC)] Onset: 01-01-2023 Episodic Other circulatory disease (1 source) Other specified symptoms and signs involving the circulatory and respiratory systems; Translations: [Chest congestion] Onset: 04-21-2023 Episodic Other lower respiratory disease (1 source) Chest pain on breathing; Translations: [Chest pain on breathing] Onset: 04-21-2023 Episodic Other nervous system disorders (5 sources) Neuropathy; Translations: [Polyneuropathy, unspecified] 10-20-2022 Chronic Other nervous system disorders (1 source) Polyneuropathy, unspecified; Translations: [Neuropathy] Onset: 01-01-2023 Chronic Other screening for suspected conditions (not mental disorders or infectious disease) (3 sources) Other specified abnormal findings of blood chemistry; Translations: [Encounter for screening for lipoid disorders] Onset: 10-01-2022 Episodic Pneumonia (except that caused by tuberculosis or sexually transmitted disease) (1 source) Pneumonia, unspecified organism; Translations: [Pneumonia of left lower lobe due to infectious organism] Onset: 04-21-2023 Episodic Respiratory failure; insufficiency; arrest (adult) (1 source) Dependence on supplemental oxygen; Translations: [Supplemental oxygen dependent] Onset: 04-21-2023 Chronic Past or Other Problems Problem Classification Problem Date Documented Da te Episodic/Chronic Other aftercare (1 source) Other penitentiary (current) drug therapy; Translations: [Medication management] Onset: 10-01-2022 Episodic Other upper respiratory infections (2 sources) Viral upper respiratory tract infection; Translations: [Acute upper respiratory infection, unspecified] Onset: 01-01-2023 01-01-2023 Episodic Results Test Name Value Interpretation Reference Range Facil ity Vital Signs Date Time Vital Sign Value Performing Clinician Tenzin alcaraz 02-03-2023 12:17-0400 Body weight 125.65 kg Wilmaarash Brown PERIODICALS CLERK.ALONDRA Work Phone: [facility] 02-03-2023 12:17-0400 Diastolic blood pressure 88 mm[Hg] Wilma Cioce PERIODICALS CLERK.[facility] Work Phone: [facility] 02-03-2023 12:17-0400 Heart rate 106 /min Wilma Kevin PERIODICALS CLERK.[facility] Work Phone: [facility] 02-03-2023 12:17-0400 SaO2% (BldA) [Mass fraction] 93 % Wilma Ciocparveen PERIODICALS CLERK.ALONDRA Work Phone: [facility] 02-03-2023 12:17-0400 Systolic blood pressure 138 mm[Hg] Wilma Cioce PERIODICALS CLERK.[facility] Work Phone: [facility] 01-01-2023 11:08-0400 Body temperature 98.29 [degF] Karlie Nieto PERIODICALS CLERK.[facility] Work Phone: [facility] 01-01-2023 11:08-0400 Body weight 122.47 kg Karlie Nieto PERIODICALS CLERK.[facility] Work Phone: [facility] 01-01-2023 11:08-0400 Diastolic blood pressure 80 mm[Hg] Karlie Nieto PERIODICALS CLERK.[facility] Work Phone: [facility] 01-01-2023 11:08-0400 Heart rate 122 /min Karlie Nieto PERIODICALS CLERK.[facility] Work Phone: [facility] 01-01-2023 11:08-0400 Respiratory rate 20 /min Karlie Nieto PERIODICALS CLERK.[facility] Work Phone: [facility] 01-01-2023 11:08-0400 SaO2% (BldA) [Mass fraction] 98 % Karlie Nieto PERIODICALS CLERK.[facility] Work Phone: [facility] 01-01-2023 11:08-0400 Systolic blood pressure 126 mm[Hg] Karlie Nieto PERIODICALS CLERK.[facility] Work Phone: [facility] 11-11-2022 11:01-0400 Body height 162.6 cm Wilma Cioce PERIODICALS CLERK.[facility] Work Phone: [facility] 11-11-2022 11:01-0400 Body weight 124.65 kg Wilmaarash Pottse PERIODICALS CLERK.[facility] Work Phone: [facility] 11-11-2022 11:01-0400 Diastolic blood pressure 76 mm[Hg] Wilma Cioce PERIODICALS CLERK.[facility] Work Phone: [facility] 11-11-2022 11:01-0400 Systolic blood pressure 124 mm[Hg] Wilma Cioce PERIODICALS CLERK.[facility] Work Phone: [facility] Encounters Encounter Date Encounter Type Care Provider Facility Start: 04-21-2023 End: 04-21-2023 ambulatory KARLIE NIETO Facility:[facility] Start: 04-19-2023 End: 04-20-2023 ambulatory KARLIE NIETO Facility:[facility] Start: 04-19-2023 End: 04-19-2023 ambulatory KARLIE GERSON Facility:[facility] Start: 04-14-2023 End: 04-14-2023 ambulatory KARLIE GERSON Facility:[facility] Start: 03-10-2023 End: 03-10-2023 ambulatory [facility] Facility:[facility] Start: 03-10-2023 End: 03-10-2023 Nursing evaluation of patient and report Akbar Moreno RN Work Phone: Endocrinology Procedures Date Procedure Procedure Detail Performing Clinician Start: 02-03-2023 Hemoglobin A1c/Hemoglobin.total in Blood Wilma Brown PERIODICALS CLERK.[facility] Work Phone: Plan of Treatment Date Care Activity Detail Author Start: 10-02-2027 L[address] SCREEN [facility] Start: 10-01-2025 DIABETES SCREEN DIABETES SCREEN [facility] Start: 01-02-2024 Annual PCP Team Accessibility Lift Technician terese Disease Visit Annual PCP Team Chronic Disease Visit [facility] Start: 10-02-2023 ANNUAL PCP TEAM BAG MACHINE ADJUSTER TERESE DISEASE VISIT ANNUAL PCP TEAM CHRONIC DISEASE VISIT [facility] Start: 10-02-2023 COLORECTAL CANCER SCREENING COLORECTAL CANCER SCREENING [facility] Immunizations Immunization Date Immunization Notes Care Provider David bland 01-14-2021 influenza virus vacc ine, unspecified formulation Wilma Brown PERIODICALS CLERK.[facility] [facility] Work Phone: [facility] Payers Date Payer Category Payer Unknown [id number] 2022 Unknown [id number] 1970 Unknown [id number] Unknown [id number] Social History Date Type Detail Facility Start: [facility] Work Phone: History of tobacco use Cigarette Smoker [facility] Work Phone: Start: 09-30-2022 End: 10-01-2022 Cigarettes smoked current (pack per day) - Reported 1 [facility] Start: 10-01-2022 Tobacco use and exposure Smoke less tobacco non-user [facility] Work Phone: Start: 10-01-2022 End: 02-03-2023 Alcohol intake Ex-drinker (finding) [facility] Start: 09-30-2022 End: 02-03-2023 Social connection and isolation panel [facility] Do you belong to any clubs or organizations such as anglican groups, unions, fraternal or athletic groups, or school groups? No [facility] Are you now , , , , never or living with a partner? Never [facility] How often to you hav e a drink containing alcohol? Never [facility] How many standard dr inks containing alcohol do you have on a typical day? Patient does not drink [facility] How hard is it for y ou to pay for the very basics like food, housing, medical care, and heating Somewhat hard [facility] Do you feel stress - tense, restless, nervous, or anxious, or unable to sleep at night because your mind is troubled all the time - these days [OSQ] To some extent [facility] (I/We) worried wheth er (my/our) food would run out before (I/we) got money to buy more. Never true [facility] Start: 1970 Sex Assigned At Not on file [facility] Clinical Notes 10-01-2022 to 04-21-2023 Akbar Moreno RN - 03/10/2023 9:45 AM ESTTelephone Encounter - Robert Nieves - 2023 11:23 AM ESTTelephone Encounter - Bia Christopher RN - 02/22/2023 8:55 AM ESTPatient Instructions Note Date & Type Note Facility 04-21-2023 Note HNO ID: [id number] Author: FARHAN ZAMORA, RT(R) Service: ? Author Type: Field Contact Person Type: Progress Notes Filed: 04/21/2023 12:08 Note Text: Radiology Service Progress Note DATE OF SERVICE: April 21, 2023 TIME: 12:07 PM PATIENT IDENTITY VERIFICATION COMPLETED USING TWO (2) STANDARD IDENTIFIERS: Name and Date of confirmed by patient verbally. FALL SCREENING: Has the patient had 2 falls in the last year or 1 fall with injury or currently using an Ambulatory Assistive Device (Walker, Cane, Wheelchair, Crutches, etc.)? No PATIENT GENDER DATA: Female. status: : No status: NO. PATIENT RELEVANT IMPLANT DATA REVIEWED: Yes ALLERGIES: Reviewed and unchanged CONTRAST ALLERGY: NO. EXAM: CT -CONTRAST INDUCED NEPHROPATHY RISK FACTORS: Not applicable CREATININE: Creatinine Date Value Ref Range Status 04/19/2023 0.83 0.58 - 0.96 mg/dL Final 10/01/2022 0.71 0.58 - 0.96 mg/dL Final 04/27/2022 0.65 0.58 - 0.96 mg/dL Final Estimated Glomerular Filtration Rate Date Value Ref Range Status 04/19/2023 85 >=60 mL/min/1.73m? Final Comment: Estimated Glomerular Filtration Rate (eGFR) is calculated using the 2020 CKD-EPI creatinine equation. This equation utilizes serum creatinine, sex, and age as parameters. The creatinine assay has traceable calibration to isotope dilution-mass spectrometry. Refer to KDIGO guidelines for clinical interpretation. In patients with unstable renal function, e.g. those with acute kidney injury, the eGFR may not accurately reflect actual GFR. P.O.C.T. RESULTS: POC done: Yes, See Lab Tab April 21, 2023 TREATMENT: N/A PERIPHERAL IV DATA: Ambulatory: A peripheral IV was started in the Left antecubital site with a Angio cath: 18 gauge. RADIOLOGY DEPARTMENT: CT; Exam(s) Completed: PE Study SIGNATURE: KALEB Andersen) PATIENT NAME: Terri Newman DATE: April 21, 2023 TIME: 12:07 PM [facility] 04-19-2023 Note HNO ID: [id number] Author: MIYA MATAMOROS APRN.[facility] Service: ? Author Type: Nurse Practitioner Type: Progress Notes Filed: 04/19/2023 10:15 Note Text: Chief Complaint Patient presents with: Follow Up: Cough 04/14, chest pain with coughing and SOB. HPI Terri Newman is a 53 year old female who presents here today for Above Complaints. Per appt with myself on 04/14/2023: Chief Complaint Patient presents with: Follow Up: Pneumonia [facility] HPI Terri Newman is a 53 year old female who presents here today for Above Complaints. Was seen at [facility] on 04/09, dx with pneumonia. Reports did have chest xray that was positive for pneumonia. Was given prednisone PO rx-20mg PO x7 days. Given rx for azithromycin-first 2 doses in hospital and then 1 tablet of 250mg daily x4 days. Currently today: Blood sugars at home have been up in to the 300's because of the prednisone. Intermittent sx. Will feel decent and then 1/2 hr later feel terrible. Has had 3 headaches since Wednesday-not taking any medication for these-suspecting this is her BP being elevated-seems to improve after taking her blood pressure medication in the mornings. Breathing-feels SOB, congested. At the hospital was coughing up blood. When uses inhaler and nebulizer brings up thick yellow phlegm. Chronically on 2L O2 at nighttime and 3L during the day when up walking around, delivered via nasal cannula. Not sure about fever-back and forth between very hot and cold chills. Feels that she is just as sick as when she went to the emergency department. Has been nauseated. Is taking her regularly scheduled humalog with meals, is not taking any additional units as prescribed-if takes this blood sugar will drop quickly, as low as 50. Is regularly seen by endocrinology who adjusts/follows her medications. EXAM: BP 144/92 (BP Site: Left Arm, BP Position: Sitting, BP Cuff Size: Regular Adult) Pulse (!) 121 Temp 36.7 ?C (98.1 ?F) Resp 20 Wt 122.2 kg (269 lb 6.4 oz) SpO2 95% BMI 46.24 kg/m? General Appearance: ill-appearing, alert, in no acute distress, well-hydrated, well nourished, visibly SOB Skin: flushed. Head: Normocephalic, no masses, lesions, tenderness or abnormalities. Eyes: Anicteric sclera. Pupils are equally round and reactive to light. Extraocular movements are intact. . Ears: External ears normal, canals clear. Nose/Sinuses: Nares normal, septum midline, mucosa normal, no drainage or sinus tenderness. Oropharynx: Lips, mucosa, and tongue normal, teeth and gums normal, oropharynx normal. Lungs: wheezing throughout to auscultation, LLL decreased and with rhonchi, visibly SOB, audibly wheezy. Heart: RRR without murmur, gallop, or rubs. No ectopy. Psychiatric: pleasant, cooperative ASSESSMENT/PLAN: 1. Chronic obstructive pulmonary disease, unspecified COPD type (HCC) - ICD9: 496, ICD10: J44.9 (primary diagnosis) Stop azithromycin, stop PO prednisone Start Levaquin, Kenalog IM-despite DM due to significant difficulty breathing. She will continue to utilize her supplemental O2. Is aware of red flag s/s. Follow up in the office in 5 days, sooner if necessary. Stat CXR in the office prior to follow up appointment. Cut back on smoking. - COVID AND INFLUENZA A/B AND RSV NAAT, ROUTINE - LEVOFLOXACIN 750 MG TABLET - TRIAMCINOLONE ACETONIDE 40 MG/ML SUSPENSION FOR INJECTION - XR CHEST 2V FRONTAL/LAT 2. Chest congestion - ICD9: 786.9, ICD10: R09.89 Stop azithromycin, stop PO prednisone Start Levaquin, Kenalog IM-despite DM due to significant difficulty breathing. She will continue to utilize her supplemental O2. Is aware of red flag s/s. Follow up in the office in 5 days, sooner if necessary. Stat CXR in the office prior to follow up appointment. Cut back on smoking. - COVID AND INFLUENZA A/B AND RSV NAAT, ROUTINE - LEVOFLOXACIN 750 MG TABLET - TRIAMCINOLONE ACETONIDE 40 MG/ML SUSPENSION FOR INJECTION - XR CHEST 2V FRONTAL/LAT 3. Supplemental oxygen dependent - ICD9: V46.2, ICD10: Z99.81 Stop azithromycin, stop PO prednisone Start Levaquin, Kenalog IM-despite DM due to significant difficulty breathing. She will continue to utilize her supplemental O2. Is aware of red flag s/s. Follow up in the office in 5 days, sooner if necessary. Stat CXR in the office prior to follow up appointment. Cut back on smoking. - COVID AND INFLUENZA A/B AND RSV NAAT, ROUTINE - LEVOFLOXACIN 750 MG TABLET - TRIAMCINOLONE ACETONIDE 40 MG/ML SUSPENSION FOR INJECTION - XR CHEST 2V FRONTAL/LAT 4. Type 2 diabetes mellitus with diabetic neuropathy, with long-term current use of insulin (HCC) - ICD9: 250.60, 357.2, V58.67, ICD10: E11.40, Z79.4 Stop azithromycin, stop PO prednisone Start Levaquin, Kenalog IM-despite DM due to significant difficulty breathing. She will continue to utilize her supplemental O2. Is aware of red flag s/s. Follow up in the office in 5 days, sooner if necessary. Stat (more content not included)... [facility] 04-19-2023 Note HNO ID: [id number] Author: MADELIN GRANADOS RT(R) Service: Radiology Author Type: Technologist Type: Progress Notes Filed: 04/19/2023 08:40 Note Text: Radiology Service Progress Note PATIENT NAME: Terri Newman DATE OF SERVICE: April 19, 2023 TIME: 8:31 AM PATIENT IDENTITY VERIFICATION COMPLETED USING TWO (2) IDENTIFIERS: Name and Date of confirmed by patient verbally. FALL SCREENING: Has the patient had 2 falls in the last year or 1 fall with injury or currently using an Ambulatory Assistive Device (Walker, Cane, Wheelchair, Crutches, etc.)? No PATIENT GENDER DATA: Female. status: : No status: NO. PATIENT RELEVANT IMPLANT DATA REVIEWED: Yes RADIOLOGY DEPARTMENT: General X-ray: Exam(s) Completed: Chest X-Ray PERIPHERAL IV DATA: Not applicable SIGNED BY: RT Saadia(R) April 19, 2023 8:31 AM [facility] 04-14-2023 Note HNO ID: [id number] Author: MIYA MATAMOROS APRN.[facility] Service: ? Author Type: Nurse Practitioner Type: Progress Notes Filed: 04/14/2023 15:29 Note Text: Chief Complaint Patient presents with: Follow Up: Pneumonia [facility] HPI Terri Newman is a 53 year old female who presents here today for Above Complaints. Was seen at [facility] on 04/09, dx with pneumonia. Reports did have chest xray that was positive for pneumonia. Was given prednisone PO rx-20mg PO x7 days. Given rx for azithromycin-first 2 doses in hospital and then 1 tablet of 250mg daily x4 days. Currently today: Blood sugars at home have been up in to the 300's because of the prednisone. Intermittent sx. Will feel decent and then 1/2 hr later feel terrible. Has had 3 headaches since Wednesday-not taking any medication for these-suspecting this is her BP being elevated-seems to improve after taking her blood pressure medication in the mornings. Breathing-feels SOB, congested. At the hospital was coughing up blood. When uses inhaler and nebulizer brings up thick yellow phlegm. Chronically on 2L O2 at nighttime and 3L during the day when up walking around, delivered via nasal cannula. Not sure about fever-back and forth between very hot and cold chills. Feels that she is just as sick as when she went to the emergency department. Has been nauseated. Is taking her regularly scheduled humalog with meals, is not taking any additional units as prescribed-if takes this blood sugar will drop quickly, as low as 50. Is regularly seen by endocrinology who adjusts/follows her medications. Past medical history, appointments, medications, allergies reviewed. Previous Medical History PAST MEDICAL HISTORY Diagnosis Date COPD (chronic obstructive pulmonary disease) (HCC) Diabetes mellitus type 2 with complications (HCC) Essential hypertension GERD (gastroesophageal reflux disease) Neuropathy Previous Surgical History History reviewed. No pertinent surgical history. Family History FAMILY HISTORY Problem Relation Age of Onset Diabetes Mother Kidney Disease Mother Lung Cancer Father Diabetes Maternal Grandmother Patient Allergies ALLERGIES No Known Allergies Current Medications Current Outpatient Medications on File Prior to Visit Medication Sig predniSONE (DELTASONE) 20 mg tablet azithromycin (ZITHROMAX) 250 mg tablet tiotropium bromide (SPIRIVA RESPIMAT) 2.5 mcg/actuation inhaler Inhale 2 Puffs as instructed once daily. albuterol (PROVENTIL) 2.5 mg /3 mL (0.083 %) nebulizer solution Use 3 mL via nebulizer every 4 hours as needed for wheezing/shortness of breath. fluticasone (FLONASE) 50 mcg/actuation nasal spray Use 2 Sprays in each nostril once daily. gabapentin (NEURONTIN) 300 mg capsule Take 1 capsule by mouth three times a day. Blood-Glucose Sensor ([employer] G7 SENSOR) nick Change sensor every 10 days. USE FOR CONTINUOUS GLUCOSE MONITORING. E11.9 amLODIPine (NORVASC) 10 mg tablet Take 1 tablet by mouth once daily. cyanocobalamin (VITAMIN B-12) 1,000 mcg tab Take 1 tablet by mouth once daily. ngsgzaomni-fuztjrix-cegmdzzcur (BREZTRI AEROSPHERE) 160-9-4.8 mcg/actuation HFA aerosol inhaler Inhale 2 Puffs as instructed two times a day. doxycycline hyclate (VIBRAMYCIN) 100 mg capsule Take 100 mg by mouth two times a day. insulin glargine U-300 conc (TOUJEO MAX U-300 SOLOSTAR) 300 unit/mL (3 mL) inpn Inject 90 units once daily HUMALOG KWIKPEN INSULIN 100 unit/mL Inject 28 units with meals (three meals daily) plus sliding scale #2 (2 units for every 50 over 150) pre meal blood sugar ( ~80 units daily TDD) cholecalciferol, Vitamin D3, (VITAMIN D3) 1,250 mcg (50,000 unit) cap capsule Take 1 capsule by mouth one time a week. metFORMIN (GLUCOPHAGE) 1,000 mg tablet Take 1 tablet by mouth two times a day with meals. magnesium oxide (MAG-OX) 400 mg (241.3 mg magnesium) tablet Take 1 tablet by mouth once daily. lisinopril (ZESTRIL) 20 mg tablet Take 1 tablet by mouth once daily. hydroCHLOROthiazide 25 mg tablet Take 1 tablet by mouth once daily. metoprolol succinate ER (TOPROL XL) 100 mg Take 1 tablet by mouth once daily. omeprazole (PRILOSEC) 40 mg capsule Take 1 capsule by mouth once daily. albuterol HFA (PROVENTIL HFA, VENTOLIN HFA) 90 mcg/actuation inhaler Inhale 2 Puffs as instructed every 4 hours as needed for wheezing/shortness of breath. No current facility-administered medications on file prior to visit. Social History Social History Tobacco Use Smoking status: Every Day Packs/day: 1 Types: Cigarettes Smokeless tobacco: Never Vaping Use Vaping Use: Never used Substance Use Topics Alcohol use: Not Currently Drug use: Never Review of Symptoms REVIEW OF SYSTEMS See HPI, otherwise negative EXAM: BP 144/92 (BP Site: Left Arm, BP Position: Sitting, BP Cuff Size: Regular Adult) Pulse (!) 121 Temp 36.7 ?C (98.1 ?F) Resp 20 Wt 122.2 kg (269 lb 6.4 oz) SpO2 95% BMI (more content not included)... [facility] 03-10-2023 Note HNO ID: [id number] Author: Akbar Moreno RN Service: ? Author Type: Registered Nurse Type: Progress Notes Filed: 03/10/2023 10:15 AM Note Text: DIABETES CARE AND EDUCATION VISIT Location: [place] Type of visit: In person individual PATIENT'S MAIN CONCERN TODAY: Get reset up with this Dexcom thing Support person present for education today: none Cognitive ability: Alert and oriented Motivation to learn: Interested Learning barriers identified by educator: none Method of instruction: verbal and demonstration DIABETES FINDINGS: Monitoring: Dexcom G7 reviewed and reinforced with patient - she'd had loss of connection with previous one and deleted the yuliana to see if that would re-establish connection once installed, reviewed rebooting the phone and ensuring that bluetooth is turned on as better steps to ensure connection. HANDOUTS: None LEARNING RESPONSE: Monitoring glucose: Demonstrated understanding/competency today or at previous visit POSSIBLE FUTURE TOPICS: 1. DIABETES CARE AND EDUCATION PLAN: Individual follow-up Time Spent (Minutes): 30 This visit note will be communicated to the healthcare provider via access to shared medical record. SIGNATURE: Akbar Moreno RN PATIENT NAME: Terri Newman DATE: March 10, 2023 TIME: 9:55 AM [facility] 03-10-2023 History of Presen t illness Narrative DIABETES CARE AND EDUCATION VISIT Location: [place] Type of visit: In person individual PATIENT'S MAIN CONCERN TODAY: Get reset up with this Dexcom thing Support person present for education today: none Cognitive ability: Alert and oriented Motivation to learn: Interested Learning barriers identified by educator: none Method of instruction: verbal and demonstration DIABETES FINDINGS: Monitoring: Dexcom G7 reviewed and reinforced with patient - she'd had loss of connection with previous one and deleted the yuliana to see if that would re-establish connection once installed, reviewed rebooting the phone and ensuring that bluetooth is turned on as better steps to ensure connection. HANDOUTS: None LEARNING RESPONSE: Monitoring glucose: Demonstrated understanding/competency today or at previous visit POSSIBLE FUTURE TOPICS: 1. DIABETES CARE AND EDUCATION PLAN: Individual follow-up Time Spent (Minutes): 30 This visit note will be communicated to the healthcare provider via access to shared medical record. SIGNATURE: Akbar Moreno RN PATIENT NAME: Terri Newman DATE: March 10, 2023 TIME: 9:55 AM documented in this encounter [facility] 2023 Miscellaneous Notes Patient phones requesting refills as follows: Requested Prescriptions Pending Prescriptions Disp Refills fluticasone (FLONASE) 50 mcg/actuation nasal spray 15.8 mL 1 Sig: Use 2 Sprays in each nostril once daily. DAINA 01/01/23 NOV no upcoming appt Please review and advise. Robert Nieves documented in this encounter [facility] 02-22-2023 Miscellaneous Notes Forwarding to [facility] calling, patient refill for gabapentin should have gone to them, not [facility]. Please cancel [facility] and submit to mail order. Patient has been identified by name and date of : Yes Requested Prescriptions Pending Prescriptions Disp Refills gabapentin (NEURONTIN) 300 mg capsule 270 capsule 3 Sig: Take 1 capsule by mouth three times a day. RX INSTRUCTIONS: Patient aware RX escripted to mail away pharmacy. No need to notify patient. Rose Bustamante documented in this encounter [facility] 02-16-2023 Miscellaneous Notes Phoned patient. Relayed message as per provider Wilma Brown CNP. She needs to follow up with podiatry and or vascular whom she sees at [facility]. I do not treat her for the neuropathy, that is vascular or podiatry OR both. Patient will phone [facility] to ask her previous provider for help in figuring her past providers information. She verbalized understanding and reports no further questions. Bia Koch MA I increased at her visit with me. She needs to follow up with podiatry and or vascular whom she sees at [facility]. I do not treat her for the neuropathy, that is vascular or podiatry OR both. 1)Patient calling asking if her Gabapentin dose could be increased? Patient said she started taking the Gabapentin 300 mg one capsule 3 times daily on 02/03. Patient said she still has severe burning in her feet. Patient uses [facility] for her pharmacy. 2)Patient asking for a note for her employer that she is being treated for neuropathy in her kleber feet. Patient is asking to have note sent to her my chart. Please advise documented in this encounter [facility] 02-15-2023 Miscellaneous Notes Pt is asking for her dexcom Rx be sent to [facility] d/t cheaper cost. It was previously sent to [facility]. Order pending review. Cynthia Abarca LPN documented in this encounter [facility] 02-09-2023 Miscellaneous Notes Patient has been identified by name and date of : Yes Patient phones for refill(s): Requested Prescriptions Pending Prescriptions Disp Refills amLODIPine (NORVASC) 10 mg tablet 90 tablet 0 Sig: Take 1 tablet by mouth once daily. Date of last office visit in primary care: 01/01/2023 Date of next office visit in primary care: Visit date not found Please advise. Thank you. Nikki Kerr LPN. documented in this encounter [facility] 02-03-2023 Note HNO ID: [id number] Author: Akbar Moreno RN Service: ? Author Type: Registered Nurse Type: Progress Notes Filed: 02/03/2023 1:12 PM Note Text: DIABETES CARE AND EDUCATION VISIT Location: [place] Type of visit: In person individual PATIENT'S MAIN CONCERN TODAY: Dexcom G7 Support person present for education today: none Cognitive ability: Alert and oriented Motivation to learn: Interested Learning barriers identified by educator: none Method of instruction: written, verbal, and demonstration DIABETES FINDINGS: Monitoring: Reviewed use of the Dexcom G7 yuliana with patient. INTERVENTIONS/TOPICS COVERED: -Monitoring: CGM type: G7, CGM basics AND daily use, and CGM insertion steps HANDOUTS: None LEARNING RESPONSE: Monitoring glucose: Demonstrated understanding/competency today or at previous visit POSSIBLE FUTURE TOPICS: 1. DIABETES CARE AND EDUCATION PLAN: Individual follow-up Time Spent (Minutes): 30 This visit note will be communicated to the healthcare provider via access to shared medical record. SIGNATURE: Akbar Moreno RN PATIENT NAME: Terri Newman DATE: February 03, 2023 TIME: 12:54 PM [facility] 02-03-2023 Note HNO ID: [id number] Author: Wilma Brown APRN.[facility] Service: ? Author Type: Nurse Practitioner Type: Progress Notes Filed: 02/03/2023 2:01 PM Note Text: OFFICE VISIT PROGRESS NOTE CC Terri Newman is a 52 year old female who presents today for blood sugar review, insulin dose adjust HPI Diagnosed with diabetes mellitus type II, ~ 2009 Last endocrine OV 11/11/2022 Some elements copied from my note 11/11/2022 which have been updated where appropriate, and all reflect current medical decision making from date of this visit. Reports severe neuropathy with bilateral feet Was on neurontin and now lyrica which is not working as well for the patient Reports 'gums' are infected [facility] Was on doxy antibiotic - sts initially helped but pt finished her doses and then infection came back Is waiting for infection to clear - having teeth made [employer] [employer] Works 3rd shift - 12 hour 7 days on, 7 days off She does have a family history of diabetes mellitus in her Mother and Grandparents. The patient reports the following microvascular complications: peripheral neuropathy. Feet. Terri has no know macrovascular complications of diabetes. 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 no Sts last month has been crazy Mom is dx with pneumonia and grabs food as she can Admits is not watching her diet at all Has been on steroid therapy - for lung issues Today is last day of steroid pills - was on 5 of 10 mg, not sure, but same strength for a week, still on antibiotic for another 5 days Has been on 2 steroid treatments and 2 different antibiotics since last seen in [facility]. Pain in feet is really bad - 10 on pain scale Is taking Vit D3 - 50 k 1 time per week PCP put pt on LYRICA, previously was on neurontin from another provider feels this medication helped with the burning and pain much more than the lyrica Requesting to go back on neurontin if possible CURRENT DM MEDS METFORMIN 1000 BID TOUJEO 80 units daily HUMALOG 18-18-18 plus SS2 TRULICITY 3 mg weekly - has not used for 3 weeks, cannot afford SMBG Type of Monitor: Other Frequency of Monitoring: ONE TOUCH REFLECT 3-4 times a day BG Values: Breakfast: 300-400 Lunch: 300-400 Dinner 300-400 Bed-time: 300-400 Values over past week: Highest 290; Lowest 160 Hypoglycemia: no Diet: No specific diet regimen Exercise: work only DM REVIEW OF SYSTEMS Last Eye Exam : DUE, saw last spring - normal exam Last Podiatry Exam: saw vascular [facility], EMG, bilateral several neuropathy feet/ankles Cardiorespiratory: negative, denies chest pain, pressure Claudication: no Dyslipidemia: No High Blood Pressure: Yes, controlled on medication CURRENT LABS None, in office A1C obtained Component Latest Ref Rng AND Units 10/01/2022 Protein, Total 6.3 - 8.0 g/dL 7.7 Albumin 3.9 - 4.9 g/dL 4.3 Calcium 8.5 - 10.2 mg/dL 10.0 Bilirubin, Total 0.2 - 1.3 mg/dL 0.3 Alkaline Phosphatase 34 - 123 U/L 91 AST 13 - 35 U/L 91 (H) ALT 7 - 38 U/L 84 (H) Glucose 74 - 99 mg/dL 104 (H) BUN 7 - 21 mg/dL 10 Creatinine 0.58 - 0.96 mg/dL 0.71 Sodium 136 - 144 mmol/L 139 Potassium 3.7 - 5.1 mmol/L 4.9 Chloride 97 - 105 mmol/L 98 CO2 22 - 30 mmol/L 25 Anion Gap 9 - 18 mmol/L 16 eGFR >=60 mL/min/1.73mA? 104 Hemoglobin A1C 4.3 - 5.6 % 9.1 (H) Estimated Average Glucose mg/dL 214 PAST MEDICAL HISTORY Diagnosis Date COPD (chronic obstructive pulmonary disease) (HCC) Diabetes mellitus type 2 with complications (HCC) Essential hypertension GERD (gastroesophageal reflux disease) Neuropathy No past surgical history on file. FAMILY HISTORY Problem Relation Age of Onset Diabetes Mother Kidney Disease Mother Lung Cancer Father Diabetes Maternal Grandmother Social History Tobacco Use Smoking status: Every Day Packs/day: 1 Types: Cigarettes Smokeless tobacco: Never Vaping Use Vaping Use: Never used Substance Use Topics Alcohol use: Not Currently Drug use: Never Current Outpatient Medications Medication Sig metFORMIN (GLUCOPHAGE) 1,000 mg tablet Take 1 tablet by mouth two times a day with meals. albuterol HFA (PROVENTIL HFA, VENTOLIN HFA) 90 mcg/actuation inhaler Inhale 2 Puffs as instructed every 4 hours as needed for wheezing/shortness of breath. HUMALOG KWIKPEN INSULIN 100 unit/mL Inject 18 units with meals (three meals daily) p (more content not included)... [facility] 02-03-2023 History of Presen t illness Narrative DIABETES CARE AND EDUCATION VISIT Location: [place] Type of visit: In person individual PATIENT'S MAIN CONCERN TODAY: Dexcom G7 Support person present for education today: none Cognitive ability: Alert and oriented Motivation to learn: Interested Learning barriers identified by educator: none Method of instruction: written, verbal, and demonstration DIABETES FINDINGS: Monitoring: Reviewed use of the Dexcom G7 yuliana with patient. INTERVENTIONS/TOPICS COVERED: -Monitoring: CGM type: G7, CGM basics & daily use, and CGM insertion steps HANDOUTS: None LEARNING RESPONSE: Monitoring glucose: Demonstrated understanding/competency today or at previous visit POSSIBLE FUTURE TOPICS: 1. DIABETES CARE AND EDUCATION PLAN: Individual follow-up Time Spent (Minutes): 30 This visit note will be communicated to the healthcare provider via access to shared medical record. SIGNATURE: Akbar Moreno RN PATIENT NAME: Terri Newman DATE: February 03, 2023 TIME: 12:54 PM documented in this encounter [facility] 02-03-2023 Miscellaneous Notes Addended by: WILMA BROWN on: 02/03/2023 12:49 PM Modules accepted: Orders documented in this encounter [facility] 02-03-2023 Instructions Wilma Brown APRN.CNP - 02/03/2023 12:37 PM EDT TOUJEO Inject 90 units once daily HUMALOG Inject 30 units with meals PLUS SS#2 PRE MEAL BLOOD Sliding Scale Insulin Dosing Sliding Scale 2 (2 units for every 50 mg/dL > 150 mg/dL) SUPPLEMENTAL INSULIN If Blood Glucose (mg/dL) is < 150 Give 0 units 151-200 Give 2 units 201-250 Give 4 units 251-300 Give 6 units 301-350 Give 8 units 351-400 Give 10 units >400 Give 12 units, call physician if blood glucose does not improve. documented in this encounter [facility] 02-03-2023 History of Presen t illness Narrative OFFICE VISIT PROGRESS NOTE CC Terri Newman is a 52 year old female who presents today for blood sugar review, insulin dose adjust HPI Diagnosed with diabetes mellitus type II, ~ 2009 Last endocrine OV 11/11/2022 Some elements copied from my note 11/11/2022 which have been updated where appropriate, and all reflect current medical decision making from date of this visit. Reports severe neuropathy with bilateral feet Was on neurontin and now lyrica which is not working as well for the patient Reports 'gums' are infected [facility] Was on doxy antibiotic - sts initially helped but pt finished her doses and then infection came back Is waiting for infection to clear - having teeth made [employer] Works 3rd shift - 12 hour 7 days on, 7 days off She does have a family history of diabetes mellitus in her Mother and Grandparents. The patient reports the following microvascular complications: peripheral neuropathy. Feet. Terri has no know macrovascular complications of diabetes. 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 no Sts last month has been crazy Mom is dx with pneumonia and grabs food as she can Admits is not watching her diet at all Has been on steroid therapy - for lung issues Today is last day of steroid pills - was on 5 of 10 mg, not sure, but same strength for a week, still on antibiotic for another 5 days Has been on 2 steroid treatments and 2 different antibiotics since last seen in ENDO. Pain in feet is really bad - 10 on pain scale Is taking Vit D3 - 50 k 1 time per week PCP put pt on LYRICA, previously was on neurontin from another provider feels this medication helped with the burning and pain much more than the margaritaa Requesting to go back on neurontin if possible CURRENT DM MEDS METFORMIN 1000 BID TOUJEO 80 units daily HUMALOG 18-18-18 plus SS2 TRULICITY 3 mg weekly - has not used for 3 weeks, cannot afford SMBG Type of Monitor: Other Frequency of Monitoring: ONE TOUCH REFLECT 3-4 times a day BG Values: Breakfast: 300-400 Lunch: 300-400 Dinner 300-400 Bed-time: 300-400 Values over past week: Highest 290; Lowest 160 Hypoglycemia: no Diet: No specific diet regimen Exercise: work only DM REVIEW OF SYSTEMS Last Eye Exam : DUE, saw last spring - normal exam Last Podiatry Exam: saw [facility], EMG, bilateral several neuropathy feet/ankles Cardiorespiratory: negative, denies chest pain, pressure Claudication: no Dyslipidemia: No High Blood Pressure: Yes, controlled on medication CURRENT LABS None, in office A1C obtained Component Latest Ref Rng & Units 10/01/2022 Protein, Total 6.3 - 8.0 g/dL 7.7 Albumin 3.9 - 4.9 g/dL 4.3 Calcium 8.5 - 10.2 mg/dL 10.0 Bilirubin, Total 0.2 - 1.3 mg/dL 0.3 Alkaline Phosphatase 34 - 123 U/L 91 AST 13 - 35 U/L 91 (H) ALT 7 - 38 U/L 84 (H) Glucose 74 - 99 mg/dL 104 (H) BUN 7 - 21 mg/dL 10 Creatinine 0.58 - 0.96 mg/dL 0.71 Sodium 136 - 144 mmol/L 139 Potassium 3.7 - 5.1 mmol/L 4.9 Chloride 97 - 105 mmol/L 98 CO2 22 - 30 mmol/L 25 Anion Gap 9 - 18 mmol/L 16 eGFR >=60 mL/min/1.73m 104 Hemoglobin A1C 4.3 - 5.6 % 9.1 (H) Estimated Average Glucose mg/dL 214 PAST MEDICAL HISTORY Diagnosis Date COPD (chronic obstructive pulmonary disease) (HCC) Diabetes mellitus type 2 with complications (HCC) Essential hypertension GERD (gastroesophageal reflux disease) Neuropathy No past surgical history on file. FAMILY HISTORY Problem Relation Age of Onset Diabetes Mother Kidney Disease Mother Lung Cancer Father Diabetes Maternal Grandmother Social History Tobacco Use Smoking status: Every Day Packs/day: 1 Types: Cigarettes Smokeless tobacco: Never Vaping Use Vaping Use: Never used Substance Use Topics Alcohol use: Not Currently Drug use: Never Current Outpatient Medications Medication Sig metFORMIN (GLUCOPHAGE) 1,000 mg tablet Take 1 tablet by mouth two times a day with meals. albuterol HFA (PROVENTIL HFA, VENTOLIN HFA) 90 mcg/actuation inhaler Inhale 2 Puffs as instructed every 4 hours as needed for wheezing/shortness of breath. HUMALOG KWIKPEN INSULIN 100 unit/mL Inject 18 units with meals (three meals daily) plus sliding scale #2 (2 units for every 50 over 150) pre meal blood sugar ( ~80 units daily TDD) insulin glargine U-300 conc (TOUJEO MAX U-300 SOLOSTAR) 300 unit/mL (3 mL) inpn Inject 80 units once daily magnesium oxide (MAG-OX) 400 mg (241.3 mg magnesium) tablet Take 1 tablet by mouth once daily. pregabalin (LYRICA) 150 mg capsule Take 1 capsule by mouth three times daily for 15 days. pregabalin (LYRICA) 150 mg capsule Take 1 capsule by mouth three times daily for 90 days. amLODIPine (NORVASC) 10 mg tablet Take 1 tablet by mouth once daily. lisinopril (ZESTRIL) 20 mg tablet Take 1 tablet by mouth once daily. tiotropium bromide (SPIRIVA RESPIMAT) 2.5 mcg/actuation inhaler Inhale 2 Puffs as instructed once daily. albuterol (PROVENTIL) 2.5 mg /3 mL (0.083 %) nebulizer solution Use 3 mL via nebulizer every 4 hours as needed for wheezing/shortness of breath. budesonide-formoterol (SYMBICORT) 160-4.5 mcg/actuation inhaler Inhale 2 Puffs as instructed twice daily. fluticasone (FLONASE) 50 mcg/actuation nasal spray Use 2 Sprays in each nostril once daily. hydroCHLOROthiazide 25 mg tablet Take 1 tablet by mouth once daily. metoprolol succinate ER (TOPROL XL) 100 mg Take 1 tablet by mouth once daily. omeprazole (PRILOSEC) 40 mg capsule Take 1 capsule by mouth once daily. [id number]-algal oil (METANX, ALGAL OIL,) 3 mg-35 mg-2 mg -90.314 mg cap Take 1 capsule twice daily with food cholecalciferol, Vitamin D3, (VITAMIN D3) 1,250 mcg (50,000 unit) cap capsule Take 1 capsule by mouth one time a week. No current facility-administered medications for this visit. ALLERGIES No Known Allergies REVIEW OF SYSTEMS - POSITIVES IN BOLD GENERAL:No weight loss, malaise or fevers HEENT:Negative for frequent or significant headaches, No changes in hearing or vision, no nose bleeds or other nasal problems NECK:Negative for lumps, goiter, pain and significant neck swelling RESPIRATORY: Negative for cough, hemoptysis, wheezing, COPD, dyspnea or shortness of breath CARDIOVASCULAR: Negative for chest pain, leg swelling, hypertension, CHF or palpitations PHYSICAL EXAMINATION: Wt 125.6 kg (277 lb) BMI 47.55 kg/m GENERAL: alert and appropriate, in no distress and well-hydrated, well nourished SKIN: moderate/severe rosacea facial skin noted HEAD: normocephalic, no abnormality or lesion noted EYES: PERRL NECK: full ROM, no cervical LNs noted ACANTHOSIS: none noted, skin tags, multiple EXTREMITIES: mild edema bilaterally NEUROLOGIC: no obvious deficit ASSESSMENT: (E11.65) Poorly controlled type 2 diabetes mellitus (HCC) (primary encounter diagnosis) Comment: STRONGLY RECOMMEND DEXCOM G7 CGM CONSULT TO DM ED SEE NUTRITION STOP LYRICA START GABAPENTIN 300 mg TID for neuropathic pain bilateral feet, pt rates as 10 on pain scale TOUJEO Inject 90 units once daily HUMALOG Inject 30 units with meals PLUS SS#2 PRE MEAL BLOOD Sliding Scale Insulin Dosing Sliding Scale 2 (2 units for every 50 mg/dL > 150 mg/dL) SUPPLEMENTAL INSULIN If Blood Glucose (mg/dL) is < 150 Give 0 units 151-200 Give 2 units 201-250 Give 4 units 251-300 Give 6 units 301-350 Give 8 units 351-400 Give 10 units >400 Give 12 units, call physician if blood glucose does not improve. Recommended diet: Low carbohydrate and Low saturated fat, low simple sugar, high fiber diet Exercise minimally 150 minutes per week, increase as tolerated. Adequate hydration - 1/2 body wgt in oz of water daily, unless fluid restriction applies. I instructed the patient to monitor blood sugars 4 times per day If blood sugars are persistently high or low, to call our office. Patient to continue to follow up with her PCP and with other consultants regarding her other medical problems. Plan: COMP METABOLIC PANEL, LIPID PANEL, NONFASTING, ALBUMIN/CREAT RATIO RND UR, HGB A1C Wilma Brown CNP documented in this encounter [facility] 01-26-2023 Miscellaneous Notes Patient requesting script be sent to mail order pharmacy. Pended med & pharmacy verified. Angeles Mancera MA documented in this encounter [facility] 01-13-2023 Miscellaneous Notes Patient has been identified by name and date of : Yes Requested Prescriptions Pending Prescriptions Disp Refills cholecalciferol, Vitamin D3, (VITAMIN D3) 1,250 mcg (50,000 unit) cap capsule 12 capsule 3 Sig: Take 1 capsule by mouth one time a week. RX INSTRUCTIONS: Patient aware RX will be sent to pharmacy. No need to notify patient. Kelsi Barrett documented in this encounter [facility] 01-01-2023 Note HNO ID: [id number] Author: Karlie iNeto APRN.ALONDRA Service: ? Author Type: Nurse Practitioner Type: Progress Notes Filed: 01/01/2023 11:33 AM Note Text: Chief Complaint No chief complaint on file. HPI Terri Newman is a 52 year old female who presents here today for Above Complaints.. Patient presents for 3 month follow up. Patient was sent to endocrinology after last appointment for pporly controlled diabetes. Patient has been seeing endocrinology as well as nutrition to get better control of DM. Patient also reports since Wednesday she has been feeling unwell. Patient has head congestion and stomach issues. Past medical history, appointments, medications, allergies reviewed. Previous Medical History PAST MEDICAL HISTORY Diagnosis Date COPD (chronic obstructive pulmonary disease) (HCC) Diabetes mellitus type 2 with complications (HCC) Essential hypertension GERD (gastroesophageal reflux disease) Neuropathy Previous Surgical History No past surgical history on file. Family History FAMILY HISTORY Problem Relation Age of Onset Diabetes Mother Kidney Disease Mother Lung Cancer Father Diabetes Maternal Grandmother Patient Allergies ALLERGIES No Known Allergies Current Medications Current Outpatient Medications on File Prior to Visit Medication Sig albuterol HFA (PROVENTIL HFA, VENTOLIN HFA) 90 mcg/actuation inhaler Inhale 2 Puffs as instructed every 4 hours as needed for wheezing/shortness of breath. HUMALOG KWIKPEN INSULIN 100 unit/mL Inject 18 units with meals (three meals daily) plus sliding scale #2 (2 units for every 50 over 150) pre meal blood sugar ( ~80 units daily TDD) insulin glargine U-300 conc (TOUJEO MAX U-300 SOLOSTAR) 300 unit/mL (3 mL) inpn Inject 80 units once daily magnesium oxide (MAG-OX) 400 mg (241.3 mg magnesium) tablet Take 1 tablet by mouth once daily. pregabalin (LYRICA) 150 mg capsule Take 1 capsule by mouth three times daily for 15 days. pregabalin (LYRICA) 150 mg capsule Take 1 capsule by mouth three times daily for 90 days. amLODIPine (NORVASC) 10 mg tablet Take 1 tablet by mouth once daily. lisinopril (ZESTRIL) 20 mg tablet Take 1 tablet by mouth once daily. tiotropium bromide (SPIRIVA RESPIMAT) 2.5 mcg/actuation inhaler Inhale 2 Puffs as instructed once daily. albuterol (PROVENTIL) 2.5 mg /3 mL (0.083 %) nebulizer solution Use 3 mL via nebulizer every 4 hours as needed for wheezing/shortness of breath. budesonide-formoterol (SYMBICORT) 160-4.5 mcg/actuation inhaler Inhale 2 Puffs as instructed twice daily. fluticasone (FLONASE) 50 mcg/actuation nasal spray Use 2 Sprays in each nostril once daily. hydroCHLOROthiazide 25 mg tablet Take 1 tablet by mouth once daily. metoprolol succinate ER (TOPROL XL) 100 mg Take 1 tablet by mouth once daily. omeprazole (PRILOSEC) 40 mg capsule Take 1 capsule by mouth once daily. [id number]-algal oil (METANX, ALGAL OIL,) 3 mg-35 mg-2 mg -90.314 mg cap Take 1 capsule twice daily with food cholecalciferol, Vitamin D3, (VITAMIN D3) 1,250 mcg (50,000 unit) cap capsule Take 1 capsule by mouth one time a week. No current facility-administered medications on file prior to visit. Social History Social History Tobacco Use Smoking status: Every Day Packs/day: 1 Types: Cigarettes Smokeless tobacco: Never Vaping Use Vaping Use: Never used Substance Use Topics Alcohol use: Not Currently Drug use: Never Review of Symptoms REVIEW OF SYSTEMS SEE HPI EXAM: BP 126/80 Pulse (!) 122 Temp 36.8 ?C (98.3 ?F) Resp 20 Wt 122.5 kg (270 lb) SpO2 98% BMI 46.35 kg/m? General Appearance: Well appearing, alert, in no acute distress, well-hydrated, well nourished.. Lungs: Lungs clear to auscultation. No wheezing, rhonchi, rales.. Heart: RRR without murmur, gallop, or rubs. No ectopy. Peripheral Pulses: Normal. Health Maintenance List Pneumococcal Vaccine(1 - PCV) Never done Urine Albumin:Creatinine Ratio Never done Dilated Retinal Exam Never done Diabetic Foot Exam Never done Hepatitis C Screening Never done HIV Screening Never done DTaP,Tdap,Td Vaccine(1 - Tdap) Never done Covid-19 Vaccine(4 - Moderna series) due on 05/14/2021 Shingrix Vaccine(1 of 2) Never done Depression Assessment Never done HbA1C due on 01/01/2023 Influenza Vaccine(1) due on 12/04/2022 Pap Testing due on 10/02/2023 Colorectal Cancer Screening due on 10/02/2023 LDL Cholesterol due on 10/02/2023 Annual PCP Team Chronic Disease Visit due on 10/02/2023 Mammogram Screening Discontinued Hepatitis B Vaccine Discontinued HPV Testing Discontinued ASSESSMENT/PLAN: 1. Type 2 diabetes mellitus with diabetic neuropathy, with long-term current use of insulin (HCC) - ICD9: 250.60, 357.2, V58.67, ICD10: E11.40, Z79.4 (primary diagnosis) - Improving control - Continue current medications - Counseled on healthy diet and regular exercise - Discussed need for and (more content not included)... [facility] 01-01-2023 History of Presen t illness Narrative Chief Complaint No chief complaint on file. HPI Terri Newman is a 52 year old female who presents here today for Above Complaints.. Patient presents for 3 month follow up. Patient was sent to endocrinology after last appointment for pporly controlled diabetes. Patient has been seeing endocrinology as well as nutrition to get better control of DM. Patient also reports since Wednesday she has been feeling unwell. Patient has head congestion and stomach issues. Past medical history, appointments, medications, allergies reviewed. Previous Medical History PAST MEDICAL HISTORY Diagnosis Date COPD (chronic obstructive pulmonary disease) (HCC) Diabetes mellitus type 2 with complications (HCC) Essential hypertension GERD (gastroesophageal reflux disease) Neuropathy Previous Surgical History No past surgical history on file. Family History FAMILY HISTORY Problem Relation Age of Onset Diabetes Mother Kidney Disease Mother Lung Cancer Father Diabetes Maternal Grandmother Patient Allergies ALLERGIES No Known Allergies Current Medications Current Outpatient Medications on File Prior to Visit Medication Sig albuterol HFA (PROVENTIL HFA, VENTOLIN HFA) 90 mcg/actuation inhaler Inhale 2 Puffs as instructed every 4 hours as needed for wheezing/shortness of breath. HUMALOG KWIKPEN INSULIN 100 unit/mL Inject 18 units with meals (three meals daily) plus sliding scale #2 (2 units for every 50 over 150) pre meal blood sugar ( ~80 units daily TDD) insulin glargine U-300 conc (TOUJEO MAX U-300 SOLOSTAR) 300 unit/mL (3 mL) inpn Inject 80 units once daily magnesium oxide (MAG-OX) 400 mg (241.3 mg magnesium) tablet Take 1 tablet by mouth once daily. pregabalin (LYRICA) 150 mg capsule Take 1 capsule by mouth three times daily for 15 days. pregabalin (LYRICA) 150 mg capsule Take 1 capsule by mouth three times daily for 90 days. amLODIPine (NORVASC) 10 mg tablet Take 1 tablet by mouth once daily. lisinopril (ZESTRIL) 20 mg tablet Take 1 tablet by mouth once daily. tiotropium bromide (SPIRIVA RESPIMAT) 2.5 mcg/actuation inhaler Inhale 2 Puffs as instructed once daily. albuterol (PROVENTIL) 2.5 mg /3 mL (0.083 %) nebulizer solution Use 3 mL via nebulizer every 4 hours as needed for wheezing/shortness of breath. budesonide-formoterol (SYMBICORT) 160-4.5 mcg/actuation inhaler Inhale 2 Puffs as instructed twice daily. fluticasone (FLONASE) 50 mcg/actuation nasal spray Use 2 Sprays in each nostril once daily. hydroCHLOROthiazide 25 mg tablet Take 1 tablet by mouth once daily. metoprolol succinate ER (TOPROL XL) 100 mg Take 1 tablet by mouth once daily. omeprazole (PRILOSEC) 40 mg capsule Take 1 capsule by mouth once daily. [id number]-algal oil (METANX, ALGAL OIL,) 3 mg-35 mg-2 mg -90.314 mg cap Take 1 capsule twice daily with food cholecalciferol, Vitamin D3, (VITAMIN D3) 1,250 mcg (50,000 unit) cap capsule Take 1 capsule by mouth one time a week. No current facility-administered medications on file prior to visit. Social History Social History Tobacco Use Smoking status: Every Day Packs/day: 1 Types: Cigarettes Smokeless tobacco: Never Vaping Use Vaping Use: Never used Substance Use Topics Alcohol use: Not Currently Drug use: Never Review of Symptoms REVIEW OF SYSTEMS SEE HPI EXAM: BP 126/80 Pulse (!) 122 Temp 36.8 C (98.3 F) Resp 20 Wt 122.5 kg (270 lb) SpO2 98% BMI 46.35 kg/m General Appearance: Well appearing, alert, in no acute distress, well-hydrated, well nourished.. Lungs: Lungs clear to auscultation. No wheezing, rhonchi, rales.. Heart: RRR without murmur, gallop, or rubs. No ectopy. Peripheral Pulses: Normal. Health Maintenance List Pneumococcal Vaccine(1 - PCV) Never done Urine Albumin:Creatinine Ratio Never done Dilated Retinal Exam Never done Diabetic Foot Exam Never done Hepatitis C Screening Never done HIV Screening Never done DTaP,Tdap,Td Vaccine(1 - Tdap) Never done Covid-19 Vaccine(4 - Moderna series) due on 05/14/2021 Shingrix Vaccine(1 of 2) Never done Depression Assessment Never done HbA1C due on 01/01/2023 Influenza Vaccine(1) due on 12/04/2022 Pap Testing due on 10/02/2023 Colorectal Cancer Screening due on 10/02/2023 LDL Cholesterol due on 10/02/2023 Annual PCP Team Chronic Disease Visit due on 10/02/2023 Mammogram Screening Discontinued Hepatitis B Vaccine Discontinued HPV Testing Discontinued ASSESSMENT/PLAN: 1. Type 2 diabetes mellitus with diabetic neuropathy, with long-term current use of insulin (HCC) - ICD9: 250.60, 357.2, V58.67, ICD10: E11.40, Z79.4 (primary diagnosis) - Improving control - Continue current medications - Counseled on healthy diet and regular exercise - Discussed need for and benefit of weight loss. BMI 46.35 kg/(m^2) - Discussed diabetic education issues of diabetes complications and monitoring required, hypoglycemic/hyperglycemic symptoms, and medication-specific side effects and monitoring - METFORMIN 1,000 MG TABLET 2. Neuropathy - ICD9: 355.9, ICD10: G62.9 -Not improving, BS still uncontrolled 3. Primary hypertension - ICD9: 401.9, ICD10: I10 - Controlled - Continue current medications - Recommend home blood pressure monitoring, to bring results to next visit - Encouraged sodium restriction, DASH or Mediterranean diet - Recommend regular aerobic exercise - Discussed need for and benefit of weight loss. BMI 46.35 kg/(m^2) 4. GERD without esophagitis - ICD9: 530.81, ICD10: K21.9 - Continue treatment with Prilosec 20 mg QD 5. Chronic obstructive pulmonary disease, unspecified COPD type (HCC) - ICD9: 496, ICD10: J44.9 -Stable -O2 3L with exertion,portable concentrator 6. Upper respiratory infection, viral - ICD9: 465.9, ICD10: J06.9 - Discussed viral etiology and rationale for treatment. - Symptomatic treatment with prn analgesia - Supportive care with fluids and rest - COVID & INFLUENZA A/B & RSV NAAT, ROUTINE - COVID NAAT, UPPER RESPIRATORY, ROUTINE - ROUTINE FLU A/B + RSV Karlie Nieto APRN.[facility] documented in this encounter [facility] 12-29-2022 Miscellaneous Notes [facility] is requesting a 90 day supply, RX written for 30 day. Teresa Berumen LPN documented in this encounter [facility] 12-21-2022 Miscellaneous Notes Phoned patient left message that prescription sent to pharmacy and Wilma suggested consult to nutrition. Bia Koch MA Strongly recommend that the patient sees NUTRITION for DM meal planning, carb counting. This will greatly reduce the amount of insulin she needs and will help with her BLOOD SUGAR control. I have placed consult Patient's request for medication is as follows Requested Prescriptions Signed Prescriptions Disp Refills HUMALOG KWIKPEN INSULIN 100 unit/mL 72 mL 3 Sig: Inject 18 units with meals (three meals daily) plus sliding scale #2 (2 units for every 50 over 150) pre meal blood sugar ( ~80 units daily TDD) Authorizing Provider: WILMA BROWN Order entered - please phone pharmacy and notify patient. Wilma Brown APRN.[facility] Patient calls with update on blood sugars since being seen in office on 11/11/2022. Patient reports that since being seen she continues to have blood sugar readings that range between 200-380's. FBS this am was 380. Current BS 182. Patient continues on Toujeo 80 units daily Humalog 18 units with meals plus SS 2 units every 50 over 150. Metformin 1000 mg twice daily. Patient was not able to fill the vitamin to help with neuropathy d/t cost and asking if there would be anything else she could try for the neuropathy. Patient requesting refill of Humalog. Now going [facility] d/t cost. Radha Mendenhall RN documented in this encounter [facility] 12-10-2022 Miscellaneous Notes Patient has been identified by name and date of : Yes Patient phones for refill(s): Requested Prescriptions Pending Prescriptions Disp Refills albuterol HFA (PROVENTIL HFA, VENTOLIN HFA) 90 mcg/actuation inhaler 1 Each 1 Sig: Inhale 2 Puffs as instructed every 4 hours as needed for wheezing/shortness of breath. Date of last office visit in primary care: 10/01/2022 Please advise. Thank you. Nikki Kerr LPN documented in this encounter [facility] 12-01-2022 Miscellaneous Notes Prior Auth was completed on Cover My Meds and was resulted 12/01/2022 by myself. According to Cover My Meds a prior authorization was not warranted for this medication. Bia Koch MA Attempted to call pt. No answer. Left message to return call. Pt to take OTC Vit D3 - 5000 international units/ daily with food after completing booster dose. Prior Auth initiated for Metanx. Yes, after she completes the VIT D3 - 50k booster dosing. She needs to obtain and take OVER THE COUNTER VIT d3 - 5000 international unit(s) daily with food. Please start prior auth for the METANX. Terri and friend Ana are calling to ask if patient needs to continue Vitamin D supplements and that the bljerjurp-[id number]-algal oil (METANX, ALGAL OIL,) 3 mg-35 mg-2 mg -90.314 mg cap medication is not covered by insurance and asking if a prior auth could be completed. Please advise patient. (Patient does work third shift). Also having issues with local pharmacy and requesting to send new scripts for [facility]. documented in this encounter [facility] 12-01-2022 Miscellaneous Notes OK to refill as ordered Yonas Samaniego MD [facility] calling for the status of refill. Patient has been identified by name and date of : Yes Requested Prescriptions Pending Prescriptions Disp Refills magnesium oxide (MAG-OX) 400 mg (241.3 mg magnesium) tablet 90 tablet 3 Sig: Take 1 tablet by mouth once daily. DAINA-10/01/22 Labs-10/01/22 NOV-01/01/23 RX INSTRUCTIONS: Patient aware RX escripted to mail away pharmacy. No need to notify patient. Mariella Torres Pss documented in this encounter [facility] 11-23-2022 Miscellaneous Notes Patient returned call and went over notes from Karlie Nieto [facility] with understanding. Patient said her [facility] rx had been cancelled so needs that rx sent. Completed another phone note to explain what happened. Left message for patient to return call to office Angeles Carty Cma Please let patient know Prescription that was sent to [facility] has a start date of 11/23-12/08. I did not place any note to delay start of med. Patient reports she cannot get her short supply of lyrica from [facility] because [facility] tells her pcp put a note on it, stating not fillable until Dec 18. Reports she is waiting on the mail order lyrica. Per chart, appears lyrica sent to [facility] was discontinued. Patient states somebody needs to figure this out because my feet hurt. Please advise patient. documented in this encounter [facility] 11-23-2022 Miscellaneous Notes Patient calling aware got short term 15 day rx to local pharmacy. Now needs her 90 day rx sent to [facility] please. Pending rx to file. Please advise Patient has been identified by name and date of : Patient phones for refill(s): Requested Prescriptions Pending Prescriptions Disp Refills pregabalin (LYRICA) 150 mg capsule 270 capsule 0 Sig: Take 1 capsule by mouth three times daily for 90 days. Date of last office visit in primary care: 10/01/2022, has appt 01/01/2023 Last 2 Encounter Wt Readings: Date: Wt: 11/11/2022 124.6 kg (274 lb 12.8 oz) 10/01/2022 123.8 kg (273 lb) Previous labs/tests for medication: Not applicable Please advise. Thank you. Marilin Anaya LPN documented in this encounter [facility] 11-20-2022 Miscellaneous Notes DAINA: 10/01/22 with PCP NOV: 01/01/23 with PCP 90 day supply just sent to [facility] 11/19/22. Pended short term supply (15 days) for Lyrica. Please advise. Angeles Mancera MA Patient is requesting up to 10 days of Lyrica be sent to [facility] since she only has enough medication for tonight. Patient is requesting 90 day supplies since it is a lower cost with her coverage. Patient has been identified by name and date of : Yes, Provider GERSON Patient phones for refill(s): Requested Prescriptions Pending Prescriptions Disp Refills budesonide-formoterol (SYMBICORT) 160-4.5 mcg/actuation inhaler 31 g 0 Sig: Inhale 2 Puffs as instructed twice daily. tiotropium bromide (SPIRIVA RESPIMAT) 2.5 mcg/actuation inhaler 1 g 0 Sig: Inhale 2 Puffs as instructed once daily. Date of last office visit in primary care: 10/01/22 Last 2 Encounter Wt Readings: Date: Wt: 11/11/2022 124.6 kg (274 lb 12.8 oz) 10/01/2022 123.8 kg (273 lb) Previous labs/tests for medication: Not applicable Please advise. Thank you. Latoya Boston documented in this encounter [facility] 11-19-2022 Miscellaneous Notes Patient calling this nurse to request 90 day prescriptions be sent to [facility] as pended. Pt states Endocrinology will address her insulins and some supplements, so those have not been pended in this encounter. No call back needed if able to send scripts. Call pt if not able to send. Thank you. Patient is having issues with local pharmacy and requesting all new 90 day scripts [facility]. documented in this encounter [facility] 11-12-2022 Miscellaneous Notes Patient notified and verbalized understanding Angeles Carty Cma Please let patient know her vitamin d and vitamin b12 are normal. documented in this encounter [facility] 11-11-2022 Note HNO ID: [id number] Author: Wilma Brown APRN.ALONDRA Service: ? Author Type: Nurse Practitioner Type: Progress Notes Filed: 11/11/2022 12:30 PM Note Text: NEW CONSULT OFFICE PROGRESS NOTE Reason for Consultation: DM Type 2 Referring Physician: SELF My final recommendations will be communicated back to the requesting physician by way of shared Medical record or letter via US mail. HISTORY OF PRESENT ILLNESS; Terri Newman is a 52 year old FEMALE is presenting as a new patient to me regarding DM Type 2. She was initially diagnosed with diabetes in 2009 Reports severe neuropathy with bilateral feet Was on neurontin and now lyrica which is not working as well for the patient Reports 'gums' are infected [facility] Was on doxy antibiotic - sts initially helped but pt finished her doses and then infection came back Is waiting for infection to clear - having teeth made [facility] Works 3rd shift - 12 hour 7 days on, 7 days off She does have a family history of diabetes mellitus in her Mother and Grandparents. The patient reports the following microvascular complications: peripheral neuropathy. Feet. Terri has no know macrovascular complications of diabetes. 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 FORMAL CURRENT DM MEDS AMARYL 4 mg 1 tab BID METFORMIN 1000 BID LANTUS 70 units daily HUMALOG TRULICITY 3 mg weekly - has not used for 3 weeks, cannot afford SMBG Type of Monitor: Other Frequency of Monitoring: ONE TOUCH REVEAL 3-4 times a day BG Values: Breakfast: 268 - 300 Lunch: 160 Dinner: 200-260 occ higher Bed-time: 260 + Values over past week: Highest 290; Lowest 160 Hypoglycemia: no Diet: No specific diet regimen Exercise: work only DM REVIEW OF SYSTEMS Last Eye Exam : DUE, saw last spring - normal exam Last Podiatry Exam: saw vascular [facility], EMG, bilateral several neuropathy feet/ankles Cardiorespiratory: negative, denies chest pain, pressure Claudication: no Dyslipidemia: No High Blood Pressure: Yes, controlled on medication CURRENT LABS Component Latest Ref Rng AND Units 01/09/2022 04/27/2022 10/01/2022 Protein, Total 6.3 - 8.0 g/dL 7.7 Albumin 3.9 - 4.9 g/dL 4.3 Calcium 8.5 - 10.2 mg/dL 10.0 Bilirubin, Total 0.2 - 1.3 mg/dL 0.3 Alkaline Phosphatase 34 - 123 U/L 91 AST 13 - 35 U/L 91 (H) ALT 7 - 38 U/L 84 (H) Glucose 74 - 99 mg/dL 104 (H) BUN 7 - 21 mg/dL 10 Creatinine 0.58 - 0.96 mg/dL 0.71 Sodium 136 - 144 mmol/L 139 Potassium 3.7 - 5.1 mmol/L 4.9 Chloride 97 - 105 mmol/L 98 CO2 22 - 30 mmol/L 25 Anion Gap 9 - 18 mmol/L 16 eGFR >=60 mL/min/1.73mA? 104 Total Cholesterol, Nonfasting <200 mg/dL 212 (H) Triglycerides, Nonfasting <150 mg/dL 246 (H) HDL Cholesterol, Nonfasting >39 mg/dL 33 (L) LDL Cholesterol, Nonfasting <100 mg/dL 130 (H) Non HDL Cholesterol, Nonfasting <130 mg/dL 179 (H) VLDL Cholesterol, Nonfasting <30 mg/dL 49 (H) Total Chol/HDL Ratio, Nonfasting <5.10 mg/dL 6.42 (H) LDL/HDL Ratio, Nonfasting <2.54 mg/dL 3.94 (H) Hemoglobin A1C 4.3 - 5.6 % 9.2 (H) 8.5 (H) 9.1 (H) Estimated Average Glucose mg/dL 217 197 214 PAST MEDICAL HISTORY Diagnosis Date COPD (chronic obstructive pulmonary disease) (HCC) Diabetes mellitus type 2 with complications (HCC) Essential hypertension GERD (gastroesophageal reflux disease) Neuropathy No past surgical history on file. FAMILY HISTORY Problem Relation Age of Onset Diabetes Mother Kidney Disease Mother Lung Cancer Father Diabetes Maternal Grandmother Social History Tobacco Use Smoking status: Every Day Packs/day: 1.00 Types: Cigarettes Smokeless tobacco: Never Vaping Use Vaping Use: Never used Substance Use Topics Alcohol use: Not Currently Drug use: Never Current Outpatient Medications Medication Sig pregabalin (LYRICA) 150 mg capsule Take 1 capsule by mouth three times daily for 90 days. amLODIPine (NORVASC) 10 mg tablet Take 1 tablet by mouth once daily. lisinopril (ZESTRIL) 20 mg tablet Take 20 mg by mouth once daily. glimepiride (AMARYL) 4 mg tablet Take 4 mg by mouth twice daily with meals. metFORMIN (GLUCOPHAGE) 1,000 mg tablet Take 1,000 mg by mouth twice daily with meals. tiotropium bromide (SPIRIVA RESPIMAT) 2.5 mcg/actuation inhaler Inhale 2 Puffs as instructed once daily. albuterol (PROVENTIL) 2.5 mg /3 mL (0.083 %) nebulizer solution Use 2.5 mg via nebulizer every 4 hours as (more content not included)... [facility] 11-11-2022 Instructions Wilma Brown APRN.[facility] DEAN - 11/11/2022 11:41 AM EDT STOP GLIMEPIRIDE STOP TRULICITY CONTINUE WITH METFORMIN B12 - 1000 mcg once daily with food VIT D3 - 5000 international unit(s) daily with food INSULIN DOSING: TOUJEO Inject 80 units once daily HUMALOG Inject 18 units with meals PLUS sliding scale #2 as per below (PRE MEAL BLOOD SUGAR) Sliding Scale Insulin Dosing Sliding Scale 2 (2 units for every 50 mg/dL > 150 mg/dL) SUPPLEMENTAL INSULIN If Blood Glucose (mg/dL) is < 150 Give 0 units 151-200 Give 2 units 201-250 Give 4 units 251-300 Give 6 units 301-350 Give 8 units 351-400 Give 10 units >400 Give 12 units, call physician if blood glucose does not improve. documented in this encounter [facility] 11-11-2022 History of Presen t illness Narrative NEW CONSULT OFFICE PROGRESS NOTE Reason for Consultation: DM Type 2 Referring Physician: SELF My final recommendations will be communicated back to the requesting physician by way of shared Medical record or letter via [place] mail. HISTORY OF PRESENT ILLNESS; Terri Newman is a 52 year old FEMALE is presenting as a new patient to me regarding DM Type 2. She was initially diagnosed with diabetes in 2009 Reports severe neuropathy with bilateral feet Was on neurontin and now lyrica which is not working as well for the patient Reports 'gums' are infected [facility] Was on doxy antibiotic - sts initially helped but pt finished her doses and then infection came back Is waiting for infection to clear - having teeth made [employer] Works 3rd shift - 12 hour 7 days on, 7 days off She does have a family history of diabetes mellitus in her Mother and Grandparents. The patient reports the following microvascular complications: peripheral neuropathy. Feet. Terri has no know macrovascular complications of diabetes. 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 FORMAL CURRENT DM MEDS AMARYL 4 mg 1 tab BID METFORMIN 1000 BID LANTUS 70 units daily HUMALOG TRULICITY 3 mg weekly - has not used for 3 weeks, cannot afford SMBG Type of Monitor: Other Frequency of Monitoring: ONE TOUCH REVEAL 3-4 times a day BG Values: Breakfast: 268 - 300 Lunch: 160 Dinner: 200-260 occ higher Bed-time: 260 + Values over past week: Highest 290; Lowest 160 Hypoglycemia: no Diet: No specific diet regimen Exercise: work only DM REVIEW OF SYSTEMS Last Eye Exam : DUE, saw last spring - normal exam Last Podiatry Exam: saw vascular [facility], EMG, bilateral several neuropathy feet/ankles Cardiorespiratory: negative, denies chest pain, pressure Claudication: no Dyslipidemia: No High Blood Pressure: Yes, controlled on medication CURRENT LABS Component Latest Ref Rng & Units 01/09/2022 04/27/2022 10/01/2022 Protein, Total 6.3 - 8.0 g/dL 7.7 Albumin 3.9 - 4.9 g/dL 4.3 Calcium 8.5 - 10.2 mg/dL 10.0 Bilirubin, Total 0.2 - 1.3 mg/dL 0.3 Alkaline Phosphatase 34 - 123 U/L 91 AST 13 - 35 U/L 91 (H) ALT 7 - 38 U/L 84 (H) Glucose 74 - 99 mg/dL 104 (H) BUN 7 - 21 mg/dL 10 Creatinine 0.58 - 0.96 mg/dL 0.71 Sodium 136 - 144 mmol/L 139 Potassium 3.7 - 5.1 mmol/L 4.9 Chloride 97 - 105 mmol/L 98 CO2 22 - 30 mmol/L 25 Anion Gap 9 - 18 mmol/L 16 eGFR >=60 mL/min/1.73m 104 Total Cholesterol, Nonfasting <200 mg/dL 212 (H) Triglycerides, Nonfasting <150 mg/dL 246 (H) HDL Cholesterol, Nonfasting >39 mg/dL 33 (L) LDL Cholesterol, Nonfasting <100 mg/dL 130 (H) Non HDL Cholesterol, Nonfasting <130 mg/dL 179 (H) VLDL Cholesterol, Nonfasting <30 mg/dL 49 (H) Total Chol/HDL Ratio, Nonfasting <5.10 mg/dL 6.42 (H) LDL/HDL Ratio, Nonfasting <2.54 mg/dL 3.94 (H) Hemoglobin A1C 4.3 - 5.6 % 9.2 (H) 8.5 (H) 9.1 (H) Estimated Average Glucose mg/dL 217 197 214 PAST MEDICAL HISTORY Diagnosis Date COPD (chronic obstructive pulmonary disease) (HCC) Diabetes mellitus type 2 with complications (HCC) Essential hypertension GERD (gastroesophageal reflux disease) Neuropathy No past surgical history on file. FAMILY HISTORY Problem Relation Age of Onset Diabetes Mother Kidney Disease Mother Lung Cancer Father Diabetes Maternal Grandmother Social History Tobacco Use Smoking status: Every Day Packs/day: 1.00 Types: Cigarettes Smokeless tobacco: Never Vaping Use Vaping Use: Never used Substance Use Topics Alcohol use: Not Currently Drug use: Never Current Outpatient Medications Medication Sig pregabalin (LYRICA) 150 mg capsule Take 1 capsule by mouth three times daily for 90 days. amLODIPine (NORVASC) 10 mg tablet Take 1 tablet by mouth once daily. lisinopril (ZESTRIL) 20 mg tablet Take 20 mg by mouth once daily. glimepiride (AMARYL) 4 mg tablet Take 4 mg by mouth twice daily with meals. metFORMIN (GLUCOPHAGE) 1,000 mg tablet Take 1,000 mg by mouth twice daily with meals. tiotropium bromide (SPIRIVA RESPIMAT) 2.5 mcg/actuation inhaler Inhale 2 Puffs as instructed once daily. albuterol (PROVENTIL) 2.5 mg /3 mL (0.083 %) nebulizer solution Use 2.5 mg via nebulizer every 4 hours as needed for wheezing/shortness of breath. insulin glargine (LANTUS U-100 INSULIN) 100 unit/mL injection Inject 70 unit/mL subcutaneously daily at bedtime. albuterol HFA (PROVENTIL HFA, VENTOLIN HFA) 90 mcg/actuation inhaler Inhale 2 Puffs as instructed every 4 hours as needed for wheezing/shortness of breath. budesonide-formoterol (SYMBICORT) 160-4.5 mcg/actuation inhaler Inhale 2 Puffs as instructed twice daily. Cholecalciferol, Vitamin D3, 125 mcg (5,000 unit) cap Take 5,000 Units by mouth once daily. TRULICITY 3 mg/0.5 mL pen injector Inject 3 mg subcutaneously one time a week. Wednesday fluticasone (FLONASE) 50 mcg/actuation nasal spray Use 2 Sprays in each nostril once daily. hydroCHLOROthiazide 25 mg tablet Take 25 mg by mouth once daily. HUMALOG KWIKPEN INSULIN 100 unit/mL Inject 14 Units subcutaneously three times daily before meals. magnesium oxide (MAG-OX) 400 mg (241.3 mg magnesium) tablet Take 400 mg by mouth once daily. metoprolol succinate ER (TOPROL XL) 100 mg Take 100 mg by mouth once daily. omeprazole (PRILOSEC) 40 mg capsule Take 40 mg by mouth once daily. No current facility-administered medications for this visit. ALLERGIES No Known Allergies REVIEW OF SYSTEMS - POSITIVES IN BOLD GENERAL:No weight loss, malaise or fevers HEENT:Negative for frequent or significant headaches, No changes in hearing or vision, no nose bleeds or other nasal problems NECK:Negative for lumps, goiter, pain and significant neck swelling RESPIRATORY: Negative for cough, hemoptysis, wheezing, COPD, dyspnea or shortness of breath CARDIOVASCULAR: Negative for chest pain, leg swelling, hypertension, CHF or palpitations PHYSICAL EXAMINATION: BP 124/76 Ht 162.6 cm (5' 4 ) Wt 124.6 kg (274 lb 12.8 oz) BMI 47.17 kg/m General appearance: Well appearing, alert, in no acute distress, well-hydrated, well nourished. Skin: Skin color, texture, turgor normal, no suspicious rashes or lesions Head: Normocephalic, no masses, lesions, tenderness or abnormalities Eyes: SHAILESH Neck: thyroid symmetric to inspection Acanthosis: none noted Extremities: Edema: none, hx of left foot fracture, patient reports that left ankle is always slightly swollen Neuro: Negative., Oriented X 3 ASSESSMENT: (E11.8) Type II diabetes mellitus with manifestations (HCC) (primary encounter diagnosis) Comment: STOP GLIMEPIRIDE STOP TRULICITY CONTINUE WITH METFORMIN B12 - 1000 mcg once daily with food VIT D3 - 5000 international unit(s) daily with food INSULIN DOSING: TOUJEO Inject 80 units once daily HUMALOG Inject 18 units with meals PLUS sliding scale #2 as per below (PRE MEAL BLOOD SUGAR) Sliding Scale Insulin Dosing Sliding Scale 2 (2 units for every 50 mg/dL > 150 mg/dL) SUPPLEMENTAL INSULIN If Blood Glucose (mg/dL) is < 150 Give 0 units 151-200 Give 2 units 201-250 Give 4 units 251-300 Give 6 units 301-350 Give 8 units 351-400 Give 10 units >400 Give 12 units, call physician if blood glucose does not improve. F/U 3 months with A1C recheck in office Recommended diet: Low carbohydrate and Low saturated fat, low simple sugar, high fiber diet Exercise minimally 150 minutes per week, increase as tolerated. Adequate hydration - 1/2 body wgt in oz of water daily, unless fluid restriction applies. I instructed the patient to monitor blood sugars 4 times per day If blood sugars are persistently high or low, to call our office. Patient to continue to follow up with her PCP and with other consultants regarding her other medical problems. Plan: COMP METABOLIC PANEL, LIPID PANEL, NONFASTING, ALBUMIN/CREAT RATIO RND UR, HGB A1C (E55.9) Vitamin D deficiency Comment: patient reporting severe neuropathy//foot pain. Will check levels today on way out Check B12 Plan: VITAMIN D 25 HYDROXY Wilma Brown CNP documented in this encounter [facility] 10-29-2022 Miscellaneous Notes Pharmacist calls and states that patient normally takes 50,000 units of D3 once a week. Pharmacist asking if provider wants to switch to this? Please review and advise, Shalonda Vieyra RN documented in this encounter [facility] 10-27-2022 Miscellaneous Notes Last Office Visit: 10/01/2022 Future Office Visit: None Requested Prescriptions Pending Prescriptions Disp Refills Cholecalciferol, Vitamin D3, 125 mcg (5,000 unit) cap 12 capsule 3 Sig: Take 1 capsule by mouth once daily. documented in this encounter [facility] 10-20-2022 Miscellaneous Notes Noted. Will send in 1 month supply. TE sent back to PCP as CHELI Patient calls back and states that she is on pregabalin for severe neuropathy and burning to feet. Patient also states that she had forgot to tell provider that she takes amlodipine 10 mg daily. Patient is going to call [facility] to have records faxed over as well. Please review and advise, Shalonda Vieyra RN Call placed to patient with no answer. Message left for patient to call back and ask to speak to a triage nurse. Radha Mendenhall RN Let patient know that PCP is out of office until . I am willing to send in refill however I don't see any documentation in Sebastián's recent note about why she is taking this medication. Since this is a controlled substance, I cannot refill without a diagnosis. Please ask patient for hx of why she takes this medication. Thank you. Jennifer Oliveira PA-C Patient calls to update medication list and request refill of Lyrica. Medication updated with patient/sister. Last OV: 10/01/2022 Next OV: patient to call back and schedule 3 month follow up once has insurance figured out. Radha Mendenhall RN documented in this encounter [facility] 10-16-2022 Miscellaneous Notes See 10/16/2022 TE. Radha Mendenhall RN Pt called and wanted you to know there are 4 medications not listed on her med list. Pt was seen in the office on 10/01/22. Please add below: Albuterol nebulizer solution every 4 to 6 hours as needed. Metformin HCL 1,000 mg taking (1) twice a day. Amlodipine 10 mg taking (1) daily Glimepiride 4 mg taking (1) twice a day. Pt reports does not need refills yet. Karyn Jovel LPN documented in this encounter [facility] 10-12-2022 Miscellaneous Notes TC to patient who is agreeable to seeing Endo. Please contact patient and assist in scheduling. Thank you! CONNOR Chen Please let patient know I have entered a consult for endocrinology. This is a doctor who specializes in diabetes and can help us to get her blood sugars under control. Spoke with pt and information listed below was given. 1. Pt reports she takes 70 units of Lantus now at bedtime. Please pt. 2.Pt reports she had called in on 10-03-22 and gave 4 medications not on her med list and they need to be added. Please review and add medications. Pt reports her Humalog she takes on a sliding scale. 15 units with every meal (three times per day) . When her level is above 160 she will take s 2 extra units. Pt reports her sugars can be all over the place. Karyn CISNEROS TC to patient with no answer. Left VM to return call to office. CONNOR Chen Please let patient know her hemoglobin a1c is elevated as well as her cholesterol levels. I would like to add long acting insulin to her regimen to get better control of her A1c. I would also like patient to be scheduled for a follow up appt in 3 months. Patient calling for results of recent lab work. Please advise. documented in this encounter [facility] 10-01-2022 Note HNO ID: [id number] Author: Karlie Nieto APRN.[facility] Service: ? Author Type: Nurse Practitioner Type: Progress Notes Filed: 10/01/2022 3:40 PM Note Text: Chief Complaint Patient presents with: [facility] HPI Terri Newman is a 52 year old female who presents here today for Above Complaints.. Patient presents to [facility]. Patient [facility] but has [facility] to switch to the clinic. Past medical history, appointments, medications, allergies reviewed. Previous Medical History No past medical history on file. Previous Surgical History No past surgical history on file. Family History No family history on file. Patient Allergies ALLERGIES No Known Allergies Current Medications Current Outpatient Medications on File Prior to Visit Medication Sig budesonide-formoterol (SYMBICORT) 160-4.5 mcg/actuation inhaler Inhale as instructed. Cholecalciferol, Vitamin D3, 125 mcg (5,000 unit) cap Take by mouth. fluticasone (FLONASE) 50 mcg/actuation nasal spray Use in the nose. hydroCHLOROthiazide 25 mg tablet Take by mouth. levoFLOXacin (LEVAQUIN) 750 mg tablet Take by mouth. pregabalin (LYRICA) 150 mg capsule Take by mouth. albuterol HFA (PROVENTIL HFA, VENTOLIN HFA) 90 mcg/actuation inhaler TRULICITY 3 mg/0.5 mL pen injector fluticasone (FLONASE) 50 mcg/actuation nasal spray HUMALOG KWIKPEN INSULIN 100 unit/mL magnesium oxide (MAG-OX) 400 mg (241.3 mg magnesium) tablet metoprolol succinate ER (TOPROL XL) 100 mg omeprazole (PRILOSEC) 40 mg capsule No current facility-administered medications on file prior to visit. Social History Review of Symptoms REVIEW OF SYSTEMS PAIN ASSESSMENT: HISTORY OF CHRONIC PAIN OR CURRENTLY BEING TREATED FOR A CHRONIC PAIN CONDITION: Yes, CONDITION: Neuropathy, not currently seeing pain management TREATMENT INCLUDES(D) CONTROLLED SUBSTANCES/SCHEDULED MEDICATIONS: Yes, Drug; lyrica Dose; 150mg Schedule; 3 times daily Duration; since august PAIN PANEL/TOXICOLOGY AVAILABLE: No OARRS: Yes, reviewed and No discrepancies GENERAL: No weight loss, malaise or fevers HEENT: Negative for frequent or significant headaches, No changes in hearing or vision, no nose bleeds or other nasal problems, Eyes Positive for blurred vision NECK: Negative for lumps, goiter, pain and significant neck swelling RESPIRATORY: Cough; dry, Severe COPD, Wheezing, Shortness of breath CARDIOVASCULAR: Hypertension GI: No nausea, vomiting, or diarrhea : No history of dysuria, frequency or incontinence [employer] STRATEGY: Negative for abnormal vaginal bleeding, abnormal vaginal discharge MUSCULOSKELETAL: Negative for joint pain or swelling, back pain or muscle pain SKIN: Negative for lesions, rash, and itching PSYCH: Negative for sleep disturbance, mood disorder and recent psychosocial stressors HEMATOLOGY/LYMPHOLOGY: Negative for prolonged bleeding, bruising easily or swollen nodes ENDOCRINE: Negative for cold or heat intolerance, polyuria, polydipsia and goiter NEURO: No history of headaches, syncope, paralysis, seizures or tremors EXAM: BP 130/80 Pulse 113 Resp 16 Wt 123.8 kg (273 lb) General Appearance: Well appearing, alert, in no acute distress, well-hydrated, well nourished.. Skin: Skin color, texture, turgor normal, no suspicious rashes or lesions. Neck: Supple, no adenopathy; thyroid symmetric, normal size, no bruits. Lungs: Lungs clear to auscultation. No wheezing, rhonchi, rales.. Heart: RRR without murmur, gallop, or rubs. No ectopy. Abdomen: Normal abdominal exam, Abdomen soft, non-tender. Bowel sounds normal. No masses, organomegaly Extremities: No deformities, edema, skin discoloration, clubbing or cyanosis. Good capillary refill. . Peripheral Pulses: Normal. Neurologic: Gait normal. Reflexes normal and symmetric. Sensation diminished bilateral lower extremities Health Maintenance List HEPATITIS B(1 of 3 - 3-dose series) Never done HEPATITIS C SCREENING Never done HIV SCREENING Never done DTAP,TDAP,TD(1 - Tdap) Never done PAP TESTING Never done HPV TESTING Never done MAMMOGRAM Never done LIPID SCREEN Never done COLORECTAL CANCER SCREENING Never done COVID-19 VACCINE(4 - Booster for Moderna series) due on 05/14/2021 SHINGRIX VACCINE(1 of 2) Never done DEPRESSION ASSESSMENT Never done INFLUENZA(Season Ended) due on 12/04/2022 DIABETES SCREEN due on 04/27/2025 ASSESSMENT/PLAN: 1. Medication management - ICD9: V58.69, ICD10: Z79.899 (primary diagnosis) - CBC + DIFF - COMP METABOLIC PANEL - HGB A1C 2. Encounter for lipid screening for cardiovascular disease - ICD9: V77.91, V81.2, ICD10: Z13.220, Z13.6 - LIPID PANEL, NONFASTING 3. Primary hypertension - ICD9: 401.9, ICD10: I10 - Controlled - Continue current medications - Recommend home blood pressure monitoring, to bring results to next visit - Encouraged sodium restriction, DASH or Mediterranean (more content not included)... [facility] Diagnosis Neuropathy- Primary Mononeuritis of unspecified site [facility] Diagnosis Type II diabetes mellitus with manifestations (HCC)- Primary Type II or unspecified type diabetes mellitus with other specified manifestations, not stated as uncontrolled Type 2 diabetes mellitus with diabetic neuropathy, with long-term current use of insulin ([facility]) Vitamin D deficiency Unspecified vitamin D deficiency [facility] Diagnosis Neuropathy Mononeuritis of unspecified site [facility] Diagnosis Neuropathy Mononeuritis of unspecified site [facility] Diagnosis Neuropathy Mononeuritis of unspecified site [facility] Diagnosis Type II diabetes mellitus with manifestations (HCC)- Primary Type II or unspecified type diabetes mellitus with other specified manifestations, not stated as uncontrolled [facility] Diagnosis Type 2 diabetes mellitus with diabetic neuropathy, with long-term current use of insulin (HCC)- Primary Neuropathy Mononeuritis of unspecified site Primary hypertension Unspecified essential hypertension GERD without esophagitis Esophageal reflux Chronic obstructive pulmonary disease, unspecified COPD type (HCC) Upper respiratory infection, viral [facility] Diagnosis Poorly controlled type 2 diabetes mellitus (HCC)- Primary Type II or unspecified type diabetes mellitus without mention of complication, not stated as uncontrolled [facility] Diagnosis Type 2 diabetes mellitus without complication, with long-term current use of insulin (HCC)- Primary [facility] Diagnosis Poorly controlled type 2 diabetes mellitus (HCC) Type II or unspecified type diabetes mellitus without mention of complication, not stated as uncontrolled documented in this encounter [facility] Summary Purpose Family History No Family History Records FoundNo Family History Records FoundNo Family History Records Found Advance Directives No Advanced Directives Records FoundNo Advanced Directives Records FoundNo Advanced Directives Records Found Reason for Referral Specialty Diagnoses / Procedures Referred By Contac t Referred To Contact Endocrinology Diagnoses Type 2 diabetes mellitus with diabetic neuropathy, with long-term current use of insulin (HCC) Procedures CONSULT TO ENDOCRINOLOGY OFFICE/OUTPATIENT [facility] 60-74 MINUTES Karlie Nieto APRN.[facility] [address] [place] [address] Referral ID Status Reason Start Date Expiration Date Visits Requested Visits Authorized [id number] Authorized PCP Requested Referral 10/12/2022 10/12/2023 1 1 Specialty Diagnoses / Procedures Referred By Contac t Referred To Contact Karlie Nieto APRN.[facility] [address] [place] [address] Referral ID Status Reason Start Date Expiration Date Visits Re quested Visits Authorized [id number] Closed 1 1 Specialty Diagnoses / Procedures Referred By Contac t Referred To Contact Nutrition Diagnoses Type II diabetes mellitus with manifestations (HCC) Procedures CONSULT TO NUTRITION THERAPY MEDICAL NUTRITION ASSMT&IVNTJ INDIV EACH 15 TX MEDICAL NUTRITION ASSMT&IVNTJ INDIV EACH 15 [place] MEDICAL NUTRITION ASSMT&IVNTJ INDIV EACH 15 [place] MEDICAL NUTRITION ASSMT&IVNTJ INDIV EACH 15 [place] Wilma Brown, PERIODICALS CLERK.[facility] [address] [place] [address] Referral ID Status Reason Start Date Expiration Date Visits Requested Visits Authorized [id number] Authorized PCP Requested Referral 12/19/2022 12/19/2023 1 1 Referral ID Status Reason Start Date Expiration Date Visits Re quested Visits Authorized [id number] Closed 1 1 Specialty Diagnoses / Procedures Referred By Contac t Referred To Contact Diagnoses Poorly controlled type 2 diabetes mellitus (HCC) Procedures CONSULT TO DIABETES EDUCATION DSME/MNT MEDICAL NUTRITION ASSMT&IVNTJ INDIV EACH 15 TX MEDICAL NUTRITION ASSMT&IVNTJ INDIV EACH 15 TX MEDICAL NUTRITION ASSMT&IVNTJ INDIV EACH 15 TX MEDICAL NUTRITION ASSMT&IVNTJ INDIV EACH 15 [place] Wilma Brown APRN.[facility] [address] [place] [address] Referral ID Status Reason Start Date Expiration Date Visits Requested Visits Authorized [id number] Authorized PCP Requested Referral 02/03/2023 02/03/2024 1 1 Specialty Diagnoses / Procedures Referred By Contac t Referred To Contact Wilma Brown APRN.[facility] [id number] [place] [id number] Referral ID Status Reason Start Date Expiration Date Visits Re quested Visits Authorized [id number] Closed 1 1 Additional Source Comments INFORMATION SOURCE (unrecogn ized section and content) DATE CREATED AUTHOR AUTHOR'S ORGANIZ ATION 10/07/2021 [facility] DATE CREATED AUTHOR AUTHOR'S ORGANIZ ATION 04/30/2023 [facility] Source Comments (unrecognize d section and content) In the event this informatio n is protected by the Federal Confidentiality of Alcohol and Drug Abuse Patient Records regulations: The Federal rules restrict any use of the information to criminally investigate or prosecute any alcohol or drug abuse patient.[facility] event this information is protected by the Federal Confidentiality of Alcohol and Drug Abuse Patient Records regulations: The Federal rules restrict any use of the information to criminally investigate or prosecute any alcohol or drug abuse patient.[facility] the event this information is protected by the Federal Confidentiality of Alcohol and Drug Abuse Patient Records regulations: The Federal rules restrict any use of the information to criminally investigate or prosecute any alcohol or drug abuse patient.[facility] the event this information is protected by the Federal Confidentiality of Alcohol and Drug Abuse Patient Records regulations: The Federal rules restrict any use of the information to criminally investigate or prosecute any alcohol or drug abuse patient.[facility] the event this information is protected by the Federal Confidentiality of Alcohol and Drug Abuse Patient Records regulations: The Federal rules restrict any use of the information to criminally investigate or prosecute any alcohol or drug abuse patient.[facility] the event this information is protected by the Federal Confidentiality of Alcohol and Drug Abuse Patient Records regulations: The Federal rules restrict any use of the information to criminally investigate or prosecute any alcohol or drug abuse patient.[facility] the event this information is protected by the Federal Confidentiality of Alcohol and Drug Abuse Patient Records regulations: The Federal rules restrict any use of the information to criminally investigate or prosecute any alcohol or drug abuse patient.[facility] the event this information is protected by the Federal Confidentiality of Alcohol and Drug Abuse Patient Records regulations: The Federal rules restrict any use of the information to criminally investigate or prosecute any alcohol or drug abuse patient.[facility] the event this information is protected by the Federal Confidentiality of Alcohol and Drug Abuse Patient Records regulations: The Federal rules restrict any use of the information to criminally investigate or prosecute any alcohol or drug abuse patient.[facility] the event this information is protected by the Federal Confidentiality of Alcohol and Drug Abuse Patient Records regulations: The Federal rules restrict any use of the information to criminally investigate or prosecute any alcohol or drug abuse patient.[facility] the event this information is protected by the Federal Confidentiality of Alcohol and Drug Abuse Patient Records regulations: The Federal rules restrict any use of the information to criminally investigate or prosecute any alcohol or drug abuse patient.[facility] the event this information is protected by the Federal Confidentiality of Alcohol and Drug Abuse Patient Records regulations: The Federal rules restrict any use of the information to criminally investigate or prosecute any alcohol or drug abuse patient.[facility] the event this information is protected by the Federal Confidentiality of Alcohol and Drug Abuse Patient Records regulations: The Federal rules restrict any use of the information to criminally investigate or prosecute any alcohol or drug abuse patient.[facility] the event this information is protected by the Federal Confidentiality of Alcohol and Drug Abuse Patient Records regulations: The Federal rules restrict any use of the information to criminally investigate or prosecute any alcohol or drug abuse patient.[facility] the event this information is protected by the Federal Confidentiality of Alcohol and Drug Abuse Patient Records regulations: The Federal rules restrict any use of the information to criminally investigate or prosecute any alcohol or drug abuse patient.[facility] HospitalIn the event this information is protected by the Federal Confidentiality of Alcohol and Drug Abuse Patient Records regulations: The Federal rules restrict any use of the information to criminally investigate or prosecute any alcohol or drug abuse patient.[facility] HospitalIn the event this information is protected by the Federal Confidentiality of Alcohol and Drug Abuse Patient Records regulations: The Federal rules restrict any use of the information to criminally investigate or prosecute any alcohol or drug abuse patient.[facility] ClinicIn the event this information is protected by the Federal Confidentiality of Alcohol and Drug Abuse Patient Records regulations: The Federal rules restrict any use of the information to criminally investigate or prosecute any alcohol or drug abuse patient.[facility] HospitalIn the event this information is protected by the Federal Confidentiality of Alcohol and Drug Abuse Patient Records regulations: The Federal rules restrict any use of the information to criminally investigate or prosecute any alcohol or drug abuse patient.[facility] HospitalIn the event this information is protected by the Federal Confidentiality of Alcohol and Drug Abuse Patient Records regulations: The Federal rules restrict any use of the information to criminally investigate or prosecute any alcohol or drug abuse patient.[facility] HospitalIn the event this information is protected by the Federal Confidentiality of Alcohol and Drug Abuse Patient Records regulations: The Federal rules restrict any use of the information to criminally investigate or prosecute any alcohol or drug abuse patient.[facility] HospitalIn the event this information is protected by the Federal Confidentiality of Alcohol and Drug Abuse Patient Records regulations: The Federal rules restrict any use of the information to criminally investigate or prosecute any alcohol or drug abuse patient.[facility] HospitalIn the event this information is protected by the Federal Confidentiality of Alcohol and Drug Abuse Patient Records regulations: The Federal rules restrict any use of the information to criminally investigate or prosecute any alcohol or drug abuse patient.[facility] HospitalIn the event this information is protected by the Federal Confidentiality of Alcohol and Drug Abuse Patient Records regulations: The Federal rules restrict any use of the information to criminally investigate or prosecute any alcohol or drug abuse patient.[facility] HospitalIn the event this information is protected by the Federal Confidentiality of Alcohol and Drug Abuse Patient Records regulations: The Federal rules restrict any use of the information to criminally investigate or prosecute any alcohol or drug abuse patient.[facility] HospitalIn the event this information is protected by the Federal Confidentiality of Alcohol and Drug Abuse Patient Records regulations: The Federal rules restrict any use of the information to criminally investigate or prosecute any alcohol or drug abuse patient.[facility] HospitalIn the event this information is protected by the Federal Confidentiality of Alcohol and Drug Abuse Patient Records regulations: The Federal rules restrict any use of the information to criminally investigate or prosecute any alcohol or drug abuse patient.[facility] HospitalIn the event this information is protected by the Federal Confidentiality of Alcohol and Drug Abuse Patient Records regulations: The Federal rules restrict any use of the information to criminally investigate or prosecute any alcohol or drug abuse patient.[facility] Reason for Visit (unrecogniz ed section and content) Reason Comments Medication Update Reason Onset Date Comments Refill Request 10/16/2022 Reason Onset Date Comments Refill Request 10/27/2022 Reason Onset Date Comments Refill Request 10/29/2022 Reason Comments type 2 diabetes Specialty Diagnoses / Procedures Referred By Contac t Referred To Contact Endocrinology Diagnoses Type 2 diabetes mellitus with diabetic neuropathy, with long-term current use of insulin (HCC) Procedures CONSULT TO ENDOCRINOLOGY OFFICE/OUTPATIENT [facility] 60-74 MINUTES Karlie Nieto APRN.ALONDRA [address] [place] [id number] Referral ID Status Reason Start Date Expiration Date V isits Requested Visits Authorized [id number] Closed PCP Requested Referral 10/12/2022 10/12/2023 1 1 Reason Comments Results Reason Onset Date Comments Refill Request 11/20/2022 Reason Comments Medication Problem Reason Onset Date Comments Refill Request 11/23/2022 Reason Comments 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 Reason Onset Date Comments Refill Request 11/30/2022 Reason Onset Date Comments Refill Request 12/02/2022 Reason Onset Date Comments Refill Request 12/10/2022 Reason Comments Patient Update Reason Onset Date Comments Refill Request 12/29/2022 Reason Comments F/U 3 Month Reason Onset Date Comments Refill Request Refill Request 01/26/2023 Reason Onset Date Comments Refill Request 01/26/2023 Reason Comments Type 2 Diabetes Reason Onset Date Comments Refill Request 02/08/2023 Reason Comments Medication Problem Reason Comments Medication Question asking for note for work Reason Onset Date Comments Refill Request 2023 Specialty Diagnoses / Procedures Referred By Elizabeth salas Referred To Contact Diagnoses Poorly controlled type 2 diabetes mellitus (HCC) Procedures CONSULT TO DIABETES EDUCATION DSME/MNT MEDICAL NUTRITION ASSMT&IVNTJ INDIV EACH 15 [place] MEDICAL NUTRITION ASSMT&IVNTJ INDIV EACH 15 [place] MEDICAL NUTRITION ASSMT&IVNTJ INDIV EACH 15 [place] MEDICAL NUTRITION ASSMT&IVNTJ INDIV EACH 15 [place] Wilma Brown, PERIODICALS CLERK.[facility] [address] [place] [address] Referral ID Status Reason Start Date Expiration Date V isits Requested Visits Authorized [id number] Closed PCP Requested Referral 02/03/2023 02/03/2024 1 1 Care Teams (unrecognized sec tion and content) Movie Shot Cameraman Relationship Specialty Start Date End Date Karlie Nieto APRN.CNP [address] [place] [phone] PCP - General Family Medicine 10/01/22 Cynthia Benedict CNP [facility] [place] [address] Referring Internal Medicine 07/22/21 Movie Shot Cameraman Relationship Specialty Start Date End Date Karlie Nieto APRN.[facility] [address] [place] [id number] PCP - General Family Medicine 10/01/22 Cynthia Benedict CNP [address] [place] [phone] Referring Internal Medicine 07/22/21 Movie Shot Cameraman Relationship Specialty Start Date End Date Karlie Nieto, CLAU.[facility] [address] [place] [phone] PCP - General Family Medicine 10/01/22 Cynthia Benedict CNP [address] [place] [address] Referring Internal Medicine 07/22/21 Movie Shot Cameraman Relationship Specialty Start Date End Date Karlie Nieto APRN.[facility] [address] [place] [address] [phone] PCP - General Family Medicine 10/01/22 Cynthia Benedict [facility] [place] [address] Referring Internal Medicine 07/22/21 Movie Shot Cameraman Relationship Specialty Start Date End Date Karlie Nieto, PERIODICALS CLERK.[facility] [place] [address] PCP - General Family Medicine 10/01/22 Cynthia Benedict, [facility] [address] [place] [phone] Referring Internal Medicine 07/22/21 Movie Shot Cameraman Relationship Specialty Start Date End Date Karlie Nieto, PERIODICALS CLERK.[facility] [address] [place] [address] [phone] PCP - General Family Medicine 10/01/22 Cynthia Benedict [facility] [address] [place] [address] Referring Internal Medicine 07/22/21 Movie Shot Cameraman Relationship Specialty Start Date End Date Karlie Nieto, PERIODICALS CLERK.[facility] [address] [place] [address] [phone] PCP - General Family Medicine 10/01/22 Cynthia Benedict, [facility] [address] [place] [address] [phone] Referring Internal Medicine 07/22/21 Movie Shot Cameraman Relationship Specialty Start Date End Date Karlie Nieto, PERIODICALS CLERK.[facility] [address] [place] [address] [phone] PCP - General Family Medicine 10/01/22 Cynthia Benedict, [facility] [address] [place] [address] 11181 Referring Internal Medicine 07/22/21 Movie Shot Cameraman Relationship Specialty Start Date End Date Karlie Nieto, PERIODICALS CLERK.[facility] [address] [place] [address] [phone] PCP - General Family Medicine 10/01/22 Cynthia Benedict, [facility] [address] [place] [address] [phone] Referring Internal Medicine 07/22/21 Movie Shot Cameraman Relationship Specialty Start Date End Date Karlie Nieto APRN.[facility] [address] [place] [address] 65172 PCP - General Family Medicine 10/01/22 Cynthia Benedict, [facility] [address] [place] [address] [phone] Referring Internal Medicine 07/22/21 Movie Shot Cameraman Relationship Specialty Start Date End Date Karlie Nieto, CLAU.[facility] [address] [place] [phone] PCP - General Family Medicine 10/01/22 Cynthia Benedict, [facility] [address] [place] [address] 76784 Referring Internal Medicine 07/22/21 Movie Shot Cameraman Relationship Specialty Start Date End Date Karlie Nieto, PERIODICALS CLERK.[facility] [address] [place] [address] [phone] PCP - General Family Medicine 10/01/22 Cynthia Benedict, [facility] [address] [place] [address] 9[address]89 Referring Internal Medicine 07/22/21 Movie Shot Cameraman Relationship Specialty Start Date End Date Karlie Nieto, PERIODICALS CLERK.[facility] [address] [place] [address] [phone] PCP - General Family Medicine 10/01/22 Cynthia Benedict, [facility] [address] [place] [address] Referring Internal Medicine 07/22/21 Movie Shot Cameraman Relationship Specialty Start Date End Date Karlie Nieto APRN.[facility] [address] [place] [address] [phone] PCP - General Family Medicine 10/01/22 Cynthia Benedict CNP [address] [place] [address] Referring Internal Medicine 07/22/21 Movie Shot Cameraman Relationship Specialty Start Date End Date Karlie Nieto APRN.[facility] [address] [place] [phone] PCP - General Family Medicine 10/01/22 Cynthia Benedict CNP [address] [place] [address]96 Referring Internal Medicine 07/22/21 Movie Shot Cameraman Relationship Specialty Start Date End Date Karlie Nieto APRN.[facility] [address] [place] [address] 26506 PCP - General Family Medicine 10/01/22 Cynthia Benedict CNP [address] [place] [address]1144 Referring Internal Medicine 07/22/21 Movie Shot Cameraman Relationship Specialty Start Date End Date Karlie Nieto APRN.[facility] [address] [place] [address] [phone] PCP - General Family Medicine 10/01/22 Cynthia Benedict CNP [address] [place] [address] Referring Internal Medicine 07/22/21 Movie Shot Cameraman Relationship Specialty Start Date End Date Karlie Nieto APRN.CNP [address] [place], [place] [phone] PCP - General Family Medicine 10/01/22 Cynthia Benedict CNP [address] [place], [place] [phone] Referring Internal Medicine 07/22/21 FOR RECORDS PERTAINING TO PATIENTS WHO ARE OR HAVE BEEN ENROLLED IN A CHEMICAL DEPENDENCY/SUBSTANCEABUSE PROGRAM, SOME INFORMATION MAY BE OMITTED. This clinical summary was aggregated from multiple sources. Caution should be exercised in using it in the provision of clinical care. This summary normalizes information from multiple sources, and as a consequence, information in this document may materially change the coding, format and clinical context of patient data. In addition, data may be omitted in some cases. CLINICAL DECISIONS SHOULD BE BASED ON THE PRIMARY CLINICAL RECORDS. [employer] [facility]. provides no warranty or guarantee of the accuracy or completeness of information in this document.
== END | disposition home or self-care (01) ==
LOC: LABSPEC 09:12
PROVIDERS: PCP Nurse Practitioner Family; Referring Provider Internal Medicine Critical Care Medicine; Visit Provider Internal Medicine Critical Care Medicine
DX: J18.9 Pneumonia, unspecified organism (principal)
CPT/HCPCS: 87070; 87077; 87186; 87205

== ENCOUNTER → 2023-06-21 | Outpatient (CLI) | payer OTHER, SELFPAY ==
--- NOTE | 2023-06-21 11:52 | RAD_ITS ---
ACR Level 3 findings have been noted. An addendum which confirms receipt of the report will follow. STUDY: X-RAY CHEST REASON FOR EXAM: Female, 53 years old. Follow-up of lingular pneumonia. Smoked for 20 years. TECHNIQUE: Frontal and lateral views of the chest. COMPARISON: 04/09/2023 FINDINGS: Mild hyperinflation. Patchy opacity still within the lingular segment of the left upper lobe. Nodular component to the opacity peripherally. Chest CT with contrast for further evaluation would be appropriate for further evaluation of this finding. There is no demonstrated pleural abnormality. Normal size heart. Normal mediastinum and shannon. Normal visualized pulmonary arteries. Normal visualized aortic arch and descending thoracic aorta. Normal visualized thoracic spine. Normal visualized ribs, clavicles, and shoulders. No abnormality of the visualized soft tissue structures of the upper abdomen. RAD/Chest PA and Lateral IMPRESSION: Residual patchy opacity in the lingular segment of the left upper lobe with nodular component adjacent to the opacity peripherally. Further evaluation with chest CT with contrast would be appropriate. We will confirm receipt of this report. Electronically Signed: Nabor Ralph MD at 9:42 EDT ,
== END | disposition home or self-care (01) ==
LOC: RAD 11:51
PROVIDERS: PCP Nurse Practitioner Family; Referring Provider Internal Medicine Critical Care Medicine; Visit Provider Internal Medicine Critical Care Medicine
DX: J18.9 Pneumonia, unspecified organism (principal)
CPT/HCPCS: 71046

== ENCOUNTER → 2023-07-08 | Outpatient (CLI) | payer OTHER, SELFPAY ==
--- NOTE | 2023-07-08 13:28 | CT_ITS ---
INDICATION: consolidation on recent CXR EXAMINATION: CT CHEST WITHOUT CONTRAST - CT Chest W/O Contrast Injection TECHNIQUE: Helically acquired images were obtained of the chest. A radiation dose optimization technique was used for this scan. IV Contrast dosage and agent: None. COMPARISON: Portable chest June 21, 2023 FINDINGS: LUNGS, PLEURA AND LARGE AIRWAYS: Mild subsegmental atelectasis of the lingula. No focal infiltration or pulmonary nodule No pleural effusion or thickening. No pneumothorax. THYROID: No thyroid lesions. HEART AND PERICARDIUM: Heart size is normal. No pericardial effusion. CORONARY ARTERIES: Mild coronary artery calcification VESSELS: Minor atherosclerotic change of the aorta without evidence for aneurysm MEDIASTINUM AND JULIA: No mediastinal or hilar adenopathy. Esophagus is unremarkable. No hiatal hernia. UPPER ABDOMEN: Nonspecific hepatic enlargement BONES: Dorsal spine demonstrates mild spondylosis No suspicious lytic or blastic abnormality. CT/Chest without Contrast IMPRESSION: Mild subsegmental atelectasis in the lingula.. ASHD without evidence for aneurysm Electronically Signed: Maurizio Padilla MD at 20:28 EDT ,
== END | disposition home or self-care (01) ==
LOC: CT 13:26
PROVIDERS: PCP Nurse Practitioner Family; Referring Provider Nurse Practitioner Acute Care; Visit Provider Nurse Practitioner Acute Care
DX: J18.1 Lobar pneumonia, unspecified organism (principal)
CPT/HCPCS: 71250

== ENCOUNTER → 2023-09-15 | Outpatient (CLI) | payer OTHER, SELFPAY ==
--- NOTE | 2023-09-15 13:54 | CT_ITS ---
STUDY: LOW DOSE CT LUNG CANCER SCREENING REASON FOR EXAM: Female, 53 years old. Smoker. Patient smoked 1 pack per day for 39 years. COPD. RADIATION DOSAGE (If Supplied By Facility): CTDIvol = ( 4.02 ) mGy, DLP = ( 157.03 ) mGycm TECHNIQUE: No contrast was administered. Low dose technique was utilized (average mAS-38 and kVp 120). 1.25 mm axial source images with a slice interval of 1.25-mm were reconstructed in lung windows. 2.5 mm axial source images with a slice interval of 2.5-mm were reconstructed in lung windows. 5.0 mm axial source images with a slice interval of 5.0-mm were reconstructed in soft tissue windows. COMPARISON: Comparison is made with prior study of July 08, 2023. NODULES: No suspicious nodules are seen. Emphysema: Mild degree of emphysematous changes. Mild volume loss in the lingular segment of the left upper lobe with evidence of scarring. Focal scarring is also seen in the anterior medial aspect of the right middle lobe. Endobronchial lesion: None Aorta: Unremarkable CORONARY ARTERIES: Coronary artery calcification is seen. Heart: Unremarkable Pulmonary artery: Remarkable Mediastinal nodes: Unremarkable Other chest and abdominal findings: CT/Low Dose CT Lung Screening IMPRESSION: Lung-RADS category 2 - Continue annual screening with LDCT in 12 months. IMPORTANT NOTES FOR USE: ACR Lung-RADS Version 1.1 Assessment Categories Release Date: 2018 Category: Coded 0-4 bases on nodule(s) with highest degree of suspicion. Negative screen is defined as categories 1 and 2; a positive screen is defined as categories 3 and 4. Category 3 and 4A nodules that are unchanged on interval CT should be coded as category 2, and individuals returned to screening in 12 months. Category 4X: Category 3 or 4 nodules with additional imaging findings that increase the suspicion of lung cancer, such as spiculation, GGN that doubles in size in 1 year, enlarged lymph notes, etc. Category Modifiers: S (significant finding unrelated to lung cancer) Electronically Signed: Saurabh Lopez MD at 15:13 EDT ,
== END | disposition home or self-care (01) ==
LOC: CT 13:51
PROVIDERS: Referring Provider Nurse Practitioner Acute Care; Visit Provider Nurse Practitioner Acute Care
DX: F17.210 Nicotine dependence, cigarettes, uncomplicated (principal)
CPT/HCPCS: 71271

== ENCOUNTER 2024-04-28 13:08 | Emergency (ER) | payer BC, SELFPAY ==
[2024-04-28 13:09] VITALS: BP 168/83; PULSE 138; RESP 26; TEMP 37; O2SAT 88; O2SAT 93
[2024-04-28 13:11] VITALS: BP 168/83; PULSE 138; RESP 26; TEMP 37; O2SAT 93
[2024-04-28 13:46] VITALS: BMI 38.6
[2024-04-28 13:54] VITALS: O2SAT 95
--- NOTE | 2024-04-28 13:54 | EKG12_ITS ---
Test Reason : SOB Blood Pressure : */* mmHG Vent. Rate : 136 BPM Atrial Rate : 136 BPM P-R Int : 134 ms QRS Dur : 80 ms QT Int : 282 ms P-R-T Axes : 75 122 31 degrees QTcB Int : 424 ms Sinus tachycardia Low voltage QRS Left posterior fascicular block Abnormal ECG Confirmed by ROSAURA MCKEON, VIRGINIA ([id number]), restaurant expeditor RONALD LEIVA ([id number]) on 05/02/2024 7:18:51 AM Referred By: Confirmed By: VIRGINIA KAPLAN MD
--- NOTE | 2024-04-28 14:00 | EDS_ITS ---
HPI <AICHA Ruelas - Last Filed: 04/28/24 15:50> History of Present Illness Chief Complaint: Shortness of Breath Narrative Narrative: Patient is a 54-year-old female who is currently on 3 L nasal cannula with history of COPD, tobacco use, obesity, sleep apnea who presents to the emergency department for 3 to 4 days of worsening cough. Patient is tachycardic, went to the urgent care had a negative COVID-19 influenza, chest x-ray and return here. Patient states she does have some intermittent fevers and chills. States that she is feeling more short of breath. Denies any sick contacts. Here for evaluation. [facility] <AICHA Ruelas - Last Filed: 04/28/24 15:50> [facility] Medical History COPD (chronic obstructive pulmonary disease) Diabetes Diabetic nephropathy HTN (hypertension) Hypomagnesemia Home Medications ?Medication ?Instructions ?Recorded ?Last Taken ?Type hydrochlorothiazide 25 mg PO/SL DAILY 10/09/21 Unknown History albuterol sulfate 2.5 mg/3 mL 2.5 mg inhalation Q4H PRN 07/17/22 Unknown History (0.083 %) solution for nebulization shortness of breath or wheezing albuterol sulfate 90 mcg/actuation 2 puff inhalation Q4H PRN 07/17/22 Unknown History aerosol inhaler cholecalciferol (vitamin D3) 125 125 mcg PO DAILY 07/17/22 Unknown History mcg (5,000 unit) capsule fluticasone propionate 50 2 spray intranasal DAILY 07/17/22 Unknown History mcg/actuation nasal spray,suspension (Flonase Allergy Relief) metformin 1,000 mg tablet 1,000 mg PO BID 07/17/22 Unknown History metoprolol tartrate 100 mg tablet 100 mg PO DAILY 07/17/22 Unknown History omeprazole magnesium 20 mg 40 mg PO DAILY 07/17/22 Unknown History tablet,delayed release (Prilosec OTC) pregabalin 150 mg capsule (Lyrica) 150 mg PO TID 07/17/22 Unknown History insulin glargine U-300 conc 300 unit subcut 01/29/23 Unknown History unit/mL (3 mL) subcutaneous pen (Toujeo Max U-300 SoloStar) insulin lispro 100 unit/mL subcut 01/29/23 Unknown History subcutaneous pen (Humalog KwikPen (U-100) Insulin) magnesium oxide 400 mg (241.3 mg mg PO 01/29/23 Unknown History magnesium) tablet (MagOx) amlodipine 10 mg tablet 10 mg PO DAILY 05/12/23 Unknown History lisinopril 40 mg tablet 20 mg PO DAILY 05/12/23 Unknown History tirzepatide 2.5 mg/0.5 mL 2.5 mg subcut 06/22/23 Unknown History subcutaneous pen injector (Mounjaro) budesonide 160 mcg-glycopyr 9 2 inh inhalation BID #10.7 grams 02/28/24 Unknown Rx mcg-formot 4.8 mcg/actuation HFA inhaler (Breztri Aerosphere) doxycycline hyclate 100 mg tablet 100 mg PO BID #14 tabs 04/28/24 Unknown Rx gabapentin 600 mg tablet mg 3XD 04/28/24 Unknown History prednisone 50 mg tablet 50 mg PO DAILY #5 tabs 04/28/24 Unknown Rx Allergy/AdvReac Type Severity Reaction Status Date / Time No Known Allergies Allergy Verified 04/28/24 13:09 Family History Father Cancer LUNG CA Mother Diabetes COPD (chronic obstructive pulmonary disease) Kidney disease Sister COPD (chronic obstructive pulmonary disease) Anemia Social History Smoking Status: Current every day smoker tobacco type: cigarettes ROS <AICHA Ruelas - Last Filed: 04/28/24 15:50> ROS ED ROS Narrative Constitutional: Negative for weight loss, weakness. Positive fever and chills Eyes: Negative for vision loss, vision change, double vision ENT: Negative for any sore throat, ear pain, congestion Cardiovascular: Negative for any chest pain, tightness. Positive palpitations Respiratory: Negative for any sputum production, hemoptysis. Positive for cough, dyspnea, dyspnea on exertion, orthopnea Gastrointestinal: Negative for any abdominal pain, nausea, vomiting, diarrhea, constipation, blood in stool, blood in vomit : Negative for any urinary frequency, dysuria, retention, blood in urine Muscle skeletal: Negative for any neck pain, back pain Neurological: Negative for any headache, syncope, dizziness Skin: Negative for any rashes, itching, abrasions, lacerations Psychiatric: Negative for any depression, anxiety, stress, suicidal ideation, homicidal ideation Hematologic: Negative for any excessive bruising, easy bleeding EXAM <Winston VictoriaprincessIACHA ferguson - Last Filed: 04/28/24 15:50> Physical Exam Narrative Exam Narrative: Vital signs reviewed. Patient is 92 to 93% on 4 L nasal cannula, patient's heart rate is 135 HEET: Head normocephalic atraumatic, TMs clear bilaterally. Posterior pharynx is clear, moist mucous membranes. Nares clear bilaterally. Neck: Supple with no lymphadenopathy or tenderness. No signs of meningismus. Cardiac: Tachycardic rate no murmurs gallops or rubs, equal peripheral pulses bilaterally. Respiratory: Expiratory wheezing, diminished in the lower lobe. No chest tenderness. Abdomen: Soft, nontender, nondistended. No abdominal bruit or pulsatile masses. No hepatosplenomegaly Extremities: No peripheral edema, no signs of gross trauma or deformity. Active full range of motion of all extremities. Neuro: Cranial nerves II through XII intact, no focal neurological deficits. Skin: Clean dry and intact with no rash, purpura, petechiae, vesicles or pustules. Backs/flank: No CVA tenderness, no midline spinal tenderness, no deformity. Psych: Normal mood and affect. No SI, HI or acute psychosis. Const Vital Signs: 04/28/24 13:09 04/28/24 13:09 04/28/24 13:11 Temperature 98.6 F 98.6 F Temperature Source Oral Oral Pulse Rate 138 H 138 H Respiratory Rate 26 H 26 H Respiratory Effort Respiratory Depth Respiratory Pattern Blood Pressure 168/83 H 168/83 H Blood Pressure Mean 111 111 Pulse Ox 88 93 93 Oxygen Delivery Method Nasal Cannula Nasal Cannula Nasal Cannula Oxygen Flow Rate (L/min) 5 5 3 04/28/24 13:39 04/28/24 13:54 04/28/24 14:11 Temperature Temperature Source Pulse Rate 132 H Respiratory Rate 17 Respiratory Effort Labored Respiratory Depth Shallow Respiratory Pattern Tachypnea Normal Blood Pressure Blood Pressure Mean Pulse Ox 95 Oxygen Delivery Method Nasal Cannula Nasal Cannula Oxygen Flow Rate (L/min) 5 3 04/28/24 14:11 04/28/24 14:11 04/28/24 15:13 Temperature 98.3 F 98.1 F Temperature Source Oral Oral Pulse Rate 131 H 126 H Respiratory Rate 21 H 12 Respiratory Effort Respiratory Depth Respiratory Pattern Blood Pressure 146/85 H 135/71 H Blood Pressure Mean 105 92 Pulse Ox 95 95 92 Oxygen Delivery Method Nasal Cannula Nasal Cannula Nasal Cannula Oxygen Flow Rate (L/min) 3 3 3 Positive well nourished, well developed and obese General Appearance ED: well developed Nutritional Appearance: obese <Dr. Miguelito Mi DO - Last Filed: 04/28/24 21:20> Physical Exam Const Vital Signs: 04/28/24 13:09 04/28/24 13:09 04/28/24 13:11 Temperature 98.6 F 98.6 F Temperature Source Oral Oral Pulse Rate 138 H 138 H Respiratory Rate 26 H 26 H Respiratory Effort Respiratory Depth Respiratory Pattern Blood Pressure 168/83 H 168/83 H Blood Pressure Mean 111 111 Pulse Ox 88 93 93 Oxygen Delivery Method Nasal Cannula Nasal Cannula Nasal Cannula Oxygen Flow Rate (L/min) 5 5 3 04/28/24 13:39 04/28/24 13:54 04/28/24 14:11 Temperature Temperature Source Pulse Rate 132 H Respiratory Rate 17 Respiratory Effort Labored Respiratory Depth Shallow Respiratory Pattern Tachypnea Normal Blood Pressure Blood Pressure Mean Pulse Ox 95 Oxygen Delivery Method Nasal Cannula Nasal Cannula Oxygen Flow Rate (L/min) 5 3 04/28/24 14:11 04/28/24 14:11 04/28/24 15:13 Temperature 98.3 F 98.1 F Temperature Source Oral Oral Pulse Rate 131 H 126 H Respiratory Rate 21 H 12 Respiratory Effort Respiratory Depth Respiratory Pattern Blood Pressure 146/85 H 135/71 H Blood Pressure Mean 105 92 Pulse Ox 95 95 92 Oxygen Delivery Method Nasal Cannula Nasal Cannula Nasal Cannula Oxygen Flow Rate (L/min) 3 3 3 MDM <AICHA Ruelas - Last Filed: 04/28/24 15:50> MDM Lab Data Labs: Laboratory Results - last 24 hr 04/28/24 13:30 WBC 13.7 H RBC 5.22 Hgb 17.0 H Hct 51.4 H MCV 98.5 MCH 32.6 H MCHC 33.1 RDW Std Deviation 48.6 H RDW Coeff of Vicky 13.3 Plt Count 238 MPV 10.9 Immature Gran % (Auto) 0.600 Neut % (Auto) 77.8 H Lymph % (Auto) 16.2 L Burt % (Auto) 4.6 Eos % (Auto) 0.2 Baso % (Auto) 0.6 Absolute Neuts (auto) 10.7 H Absolute Lymphs (auto) 2.23 Nucleated RBC % 0 D-Dimer Quant (PE/DVT) 0.49 Sodium 135 L Potassium 4.3 Chloride 100 Carbon Dioxide 29.0 Anion Gap 6 BUN 13 Creatinine 0.76 Estim Creat Clear Calc 108.02 Est GFR (MDRD) Af Amer 102 Est GFR (MDRD) Non-Af 84 BUN/Creatinine Ratio 17.0 Glucose 163 H Lactic Acid 1.4 Calcium 9.9 Troponin I High Sens < 3 L B-Natriuretic Peptide 22.0 ABG Data ABG results: ABG 04/28/24 15:24 Specimen Type JEFF Sample Site Not entered VBG pH 7.35 VBG pO2 37 VBG HCO3 30 H VBG Total CO2 32 VBG O2 Sat (Calc) 66 VBG Base Excess 4 H POC Mix VBG pCO2 Pt Tmp 54.7 H O2 Delivery Device Not entered Radiography Diagnostic Testing: Clinical Impression(s) from Imaging Studies Chest X-Ray 04/28/24 14:30 IMPRESSION: Hyperinflation. Residual increased markings in the lingular segment of left upper lobe although this has improved as compared to prior study suggestive of scarring. Electronically Signed: Saurabh Lopez MD at 14:58 EST , EKG Sinus tachycardia: Attestation: I personally reviewed and interpreted this EKG as follows: Interpretation: Sinus Rhythm Comments: Sinus tachycardia, rate 136 bpm, OR interval 134 ms, QRS duration 80 ms, no acute ST elevation, no acute infarct noted Treatment and Re-Evaluation :: Differential diagnosis includes however is not limited to: Pulmonary embolus, A CS, MA, COPD exacerbation, COVID-19, influenza, community-acquired pneumonia, viral pneumonia Patient's tachycardic, temperature is 99.5. Patient at rest seems to be in no obvious distress. Patient does have audible wheezing. Presenting to the emergency department for wheezing over the last 2 to 3 days. Patient will receive a full cardiac workup including breathing treatments, dimer, BNP. Two- view chest x-ray will be obtained as well as viral swabs. all radiologic examinations were read, reviewed by the emergency department attending. From these reads, a plan of care will be put in place. Patient be given breathing treatment as well as IV steroids. Will need to be reevaluated. VBG did show elevated CO2, patient slightly low however this is baseline. Patient's repeat evaluation shows an easier work of breathing. Better lung sounds. Patient's heart rate is now 108. Patient's laboratory values show slight leukocytosis with a white blood count of 13.7, hemoglobin is 17. Ch emistries were unremarkable, glucose 163, troponin was negative, BNP was negative. Chest x-ray shows chronic changes, no acute infiltrate. At this time, I spoke with the patient regarding admission versus discharge. Patient states that she does well on her oxygen, she will be discharged home, she will be started on doxycycline well as prednisone. She will be treated for COPD exacerbation. Instructed return for any worsening symptoms, all questions answered, stable for discharge. <Dr. Miguelito Mi, DO - Last Filed: 04/28/24 21:20> [facility] MDM Narrative Medical decision making narrative: ED attending note: I evaluated the patient in conjunction with the BHARGAV. I agree with his/her statements and above findings. I have personally performed a face to face assessment of the patient and have reviewed the BHARGAV Note. I performed a substantive portion of the visit including all aspects of the following. I personally saw the patient performed chart review, physical exam, reviewed labs, imaging (if obtained), and formulated a treatment and management plan. 54-year-old female here with shortness of breath in the setting of COPD, LAWANDA with a 30-year pack history. The patient denies recent surgery in the last 4 weeks or immobilization in the last 3 days, denies previous diagnosis of DVT or PE, hemoptysis, unilateral leg swelling or malignancy with treatment the last 6 months or palliative. No estrogen use noted. Exam with wheezing bilaterally, no respiratory distress, no increased work of breathing or conversational dyspnea. No stigmata of VTE. Chest x-ray was read reviewed myself shows no evidence of obvious pneumonia. Radiologist agrees my interpretation. While the patient did have a leukocytosis there is no sign of infection. Lactate was negative low suspicion for VTE given negative D-dimer. Patient did not show signs of significant respiratory acidosis or CO2 retention with a VBG with a pH of 7.35. I suspect she suffered from a COPD exacerbation. As such we will treat with steroids, doxycycline and bronchodilators. While I considered pulmonary embolism as a potential etiology, tachycardia the patient had an otherwise low risk Wells score and a negative D- dimer making VTE less likely. This note was generated with [employer] dictation software. It may contain incorrect words, spelling, and punctuation that were not noted in review of the chart prior to signing. Lab Data Labs: Laboratory Results - last 24 hr 04/28/24 13:30 WBC 13.7 H RBC 5.22 Hgb 17.0 H Hct 51.4 H MCV 98.5 MCH 32.6 H MCHC 33.1 RDW Std Deviation 48.6 H RDW Coeff of Vicky 13.3 Plt Count 238 MPV 10.9 Immature Gran % (Auto) 0.600 Neut % (Auto) 77.8 H Lymph % (Auto) 16.2 L Burt % (Auto) 4.6 Eos % (Auto) 0.2 Baso % (Auto) 0.6 Absolute Neuts (auto) 10.7 H Absolute Lymphs (auto) 2.23 Nucleated RBC % 0 D-Dimer Quant (PE/DVT) 0.49 Sodium 135 L Potassium 4.3 Chloride 100 Carbon Dioxide 29.0 Anion Gap 6 BUN 13 Creatinine 0.76 Estim Creat Clear Calc 108.02 Est GFR (MDRD) Af Amer 102 Est GFR (MDRD) Non-Af 84 BUN/Creatinine Ratio 17.0 Glucose 163 H Lactic Acid 1.4 Calcium 9.9 Troponin I High Sens < 3 L B-Natriuretic Peptide 22.0 ABG Data ABG results: ABG 04/28/24 15:24 Specimen Type JEFF Sample Site Not entered VBG pH 7.35 VBG pO2 37 VBG HCO3 30 H VBG Total CO2 32 VBG O2 Sat (Calc) 66 VBG Base Excess 4 H POC Mix VBG pCO2 Pt Tmp 54.7 H O2 Delivery Device Not entered Radiography Diagnostic Testing: Clinical Impression(s) from Imaging Studies Chest X-Ray 04/28/24 14:30 IMPRESSION: Hyperinflation. Residual increased markings in the lingular segment of left upper lobe although this has improved as compared to prior study suggestive of scarring. Electronically Signed: Saurabh Lopez MD at 14:58 EST , Discharge Plan Triage Chief Complaint: Shortness of Breath ED Midlevel Provider: Winston Centeno ED Provider: Miguelito Mi Dx/Rx/DC Orders Clinical Impression: Wheeze, Acute exacerbation of chronic obstructive pulmonary disease Instructions: Asthma and COPD Prescriptions: New doxycycline hyclate 100 mg tablet 100 mg PO BID Qty: 14 0RF prednisone 50 mg tablet 50 mg PO DAILY Qty: 5 0RF No Action albuterol sulfate 90 mcg/actuation HFA aerosol inhaler 2 puff inhalation Q4H PRN albuterol sulfate 2.5 mg /3 mL (0.083 %) solution for nebulization 2.5 mg inhalation Q4H PRN (Reason: shortness of breath or wheezing) pregabalin [Lyrica] 150 mg capsule 150 mg PO TID metformin 1,000 mg tablet 1,000 mg PO BID metoprolol tartrate 100 mg tablet 100 mg PO DAILY omeprazole magnesium [Prilosec OTC] 20 mg tablet,delayed release (DR/EC) 40 mg PO DAILY cholecalciferol (vitamin D3) 125 mcg (5,000 unit) capsule 125 mcg PO DAILY fluticasone propionate [Flonase Allergy Relief] 50 mcg/actuation spray,suspension 2 spray intranasal DAILY Rx Instructions: administer into each nostril lisinopril 40 mg tablet 20 mg PO DAILY magnesium oxide [MagOx] 400 mg (241.3 mg magnesium) tablet PO Toujeo Max U-300 SoloStar 300 unit/mL (3 mL) insulin pen subcut insulin lispro [Humalog KwikPen Insulin] 100 unit/mL insulin pen subcut amlodipine 10 mg tablet 10 mg PO DAILY Mounjaro 2.5 mg/0.5 mL pen injector 2.5 mg subcut hydrochlorothiazide 25 mg PO/SL DAILY gabapentin 600 mg tablet 3XD Breztri Aerosphere 160-9-4.8 mcg/actuation HFA aerosol inhaler 2 inh inhalation BID Qty: 10.7 6RF Primary Care Provider: Karlie Nieto Referrals: Karlie Nieto, CARDIOGRAPHER-C [Primary Care Provider] - Activity Restrictions/Additional Instructions: Please follow-up outpatient. Take the antibiotics till finished, use the prednisone until finished. Return for any worsening symptoms Print Language: Macedonian Disposition Disposition: Home, Self Care Discharge Date/Time: 04/28/24 16:01
[2024-04-28 14:09] LABS: Absolute Lymphocyte Count 2.23 X10^3/uL (0.83-4.51); Absolute Neutrophil Count 10.7 X10^3/uL (2.0-7.7); Basophil# 0.08 X10^3/uL; Basophil% 0.6 % (0-1); Eosinophil# 0.03 X10^3/uL; Eosinophils% 0.2 % (0-5); Hematocrit 51.4 % (37-47); Lymphocyte # 2.23 X10^3/ul (0.83-4.51); Lymphocyte % 16.2 % (19-41); Mean Corp Hgb Conc 33.1 g/dL (32-36); Mean Corpuscular Hgb 32.6 pg (27.0-32.0); Mean Corpuscular Volume 98.5 fL (81-99); Mean Platelet Vol. 10.9 fl (6.2-12.0); Monocyte# 0.63 X10^3/uL; Monocyte% 4.6 % (0-10); NRBC Flagged by Analyzer 0 % (0-5); Neutrophil # 10.69 X10^3/uL (2.7-7.7); Neutrophil % 77.8 % (47-70); Platelet Count 238 K/mm3 (150-450); RBC Distribution Width CV 13.3 % (11.6-14.6); RBC Distribution Width SD 48.6 fl (35.1-43.9); Red Blood Count 5.22 M/mm3 (4.2-5.4); White Blood Count 13.7 K/mm3 (4.4-11.0)
[2024-04-28] MEDS: Ipratropium/Albuterol Sulfate 3 ML AMPUL.NEB INHALATION (14:10)
[2024-04-28] MEDS: Albuterol 2.5 MG/3 ML VIAL.NEB. INHALATION (14:10)
[2024-04-28 14:11] VITALS: BP 146/85; PULSE 131; PULSE 132; RESP 17; RESP 21; TEMP 36.8; O2SAT 95
[2024-04-28 14:26] LABS: D-Dimer Quantitative (DVT/PE) 0.49 FEU/ug/m (0.27-0.49)
--- NOTE | 2024-04-28 14:30 | RAD_ITS ---
STUDY: X-RAY CHEST REASON FOR EXAM: Female, 54 years old. Increasing shortness of breath. TECHNIQUE: PA and lateral views of the chest. COMPARISON: Comparison is made with prior study dated June 21, 2023. FINDINGS: EKG electrodes are seen. Mild degree of increased residual markings in the lingular segment of the left upper lobe suggestive of scarring. This has improved as compared to prior study. Hyperinflation. Scattered calcified granulomas. There is no demonstrated pleural abnormality. Normal size heart. Normal mediastinum and shannon. Normal visualized pulmonary arteries. Normal visualized aortic arch and descending thoracic aorta. There are degenerative changes of the visualized thoracic spine. Normal visualized ribs, clavicles, and shoulders. There is no demonstrated abnormality of the visualized soft tissue structures of the upper abdomen. RAD/Chest PA and Lateral IMPRESSION: Hyperinflation. Residual increased markings in the lingular segment of left upper lobe although this has improved as compared to prior study suggestive of scarring. Electronically Signed: Saurabh Lopez MD at 14:58 EST ,
[2024-04-28 14:33] LABS: Lactic Acid 1.4 mmol/L (0.4-1.9)
[2024-04-28 14:34] LABS: Anion Gap 6 (5-15); BUN 13 mg/dL (7-18); Calcium,Total 9.9 mg/dL (8.5-10.1); Chloride 100 mmol/L (98-107); Creatinine, Serum 0.76 mg/dL (0.55-1.02); EST Glomerular Filtration Rate 84 mL/min (>60); Est Glom Filt Rate - Afr Amer 102 mL/min (>60); Estimated Creatinine Clearance 108.02 ml/min; Glucose 163 mg/dL (74-106); Potassium 4.3 mmol/L (3.5-5.1); Sodium Level 135 mmol/L (136-145); Troponin-I HS < 3 pg/mL (3.0-54.0)
[2024-04-28] MEDS: MethylPREDNISolone 125 MG/2 ML Vial 60 MG IV (14:37)
[2024-04-28] MEDS: 0.9% Normal Saline (1000mL) 1,000 ML 999 ML IV (14:37)
[2024-04-28 15:13] VITALS: BP 135/71; PULSE 126; RESP 12; TEMP 36.7; O2SAT 92
[2024-04-28] MEDS: Doxycycline 100 MG CAPSULE PO (15:59)
[2024-04-28 17:30] LABS: Blood Gas Specimen Type VEN; O2 Delivery Device Not entered; SITE Not entered; VBG BASE EXCESS 4 mmol/L (-1.0-3.5); VBG Bicarbonate 30 mmol/L (22-26); VBG PO2 37 mmHg (25-40); VBG SO2 66 % (50-70); VBG TCO2 32 mmol/L (23-33); VBG pCO2 54.7 mmHg (41-51); VBG pH 7.35 (7.32-7.42)
== END 2024-04-28 16:01 | disposition home or self-care (01) ==
PROVIDERS: Nurse Practitioner; Emergency Provider Emergency Medicine; PCP Nurse Practitioner Family; Visit Provider Emergency Medicine
DX: J44.1 Chronic obstructive pulmonary disease with (acute) exacerbation (principal); E11.21 Type 2 diabetes mellitus with diabetic nephropathy; Z79.4 Long term (current) use of insulin; I10 Essential (primary) hypertension; F17.210 Nicotine dependence, cigarettes, uncomplicated; Z99.81 Dependence on supplemental oxygen; Z79.51 Long term (current) use of inhaled steroids; Z79.84 Long term (current) use of oral hypoglycemic drugs; Z79.899 Other long term (current) drug therapy
CPT/HCPCS: 71046; 80048; 82803; 83605; 83880; 84484; 85025; 85379; 87040; 87631; 93005; 94640; 96361; 96374; 99284; A4216